=== PATIENT | female | born 1945 | race Caucasian/White ===

== ENCOUNTER 2021-05-07 11:34 | Emergency (ER) | payer OTHER ==
--- OUTSIDE RECORDS SUMMARY | 2021-05-07 11:44 | XMS REPORT | Continuity of Care Document ---
:1945 Author Organization [facility] t Address [address] [place] [address] Care Team Providers Name Role Phone Amos Crook MD Attending Clinician Rubi ORTEGA Attending Clinician Keith Machado MD Attending Clinician Amos CROOK Attending Clinician Unavailable Jose Grimaldo MD Attending Clinician Orion Payne MD Attending Clinician John Ureña MD Attending Clinician MONET GALEANA Attending Clinician Unavailable MARIELA Attending Clinician Unavailable Keith MACHADO Admitting Clinician Unavailable MONET GALEANA Admitting Clinician Unavailable MARIELA Admitting Clinician Unavailable Payers Payer Name Policy Type Policy Effective Date Expiration Date Sour ce Number MEDICAREMEDICARE A [id number] 2008 JULIO CESAR Rojo [id number] 2008-P 00:00:00 - Medical resentMedicare Center [facility] [id number] 2021 JULIO CESAR Saez SUPPLEMENT/INDIVIDUALA 00:00:00 - [facility] [id number] 2021-Present Problems Condition Condition Condition Status Onset Resolution Last Treating Co mments Source Name Details Category Date Date Treatment Clinician Date s/p RUL s/p RUL Disease Active JULIO CESAR St wedge wedge 04-25 Alia - resection, resection, 00:00: Me dical pericardia pericardia 00 Ce nter l window l window (Natrona (Natrona 04/25), 04/25), suspected suspected malignancy malignancy Allergies, Adverse Reactions, Alerts Allergy Allergy Status Severity Reaction(s) Onset Inactive Treating Comm ents Source Name Type Date Date Clinician Predniso Propensi Active [facility] - adverse 00:00: Medical reaction 00 Center s Sulfamet Propensi Active [facility] hoxazole ty to 04-25 [facility] - adverse 00:00: Medical reaction 00 Center s Tramadol Propensi Active Severe [facility] ty to 04-25 [facility] - adverse 00:00: Medical reaction 00 Center s Trimetho Propensi Active Severe [facility] prim ty to 04-25 [facility] - adverse 00:00: Medical reaction 00 [facility] Social History Social Habit Start Date Stop Date Quantity Comments Source Sex Assigned At [facility] Tobacco use and 2021-04-26 2021-04-26 Never used [facility] - exposure 00:00:00 00:00:00 [facility] Alcohol intake 2021-04-26 2021-04-26 Ex-drinker [facility] - 00:00:00 00:00:00 (finding) [facility] Smoking Status Start Date Stop Date Source Former smoker 2021-04-26 00:00:00 2021-04-26 00:00:00 [facility] Medications Ordered Filled Start Stop Current Ordering Indication Dosage Frequency Signature Comments Components Source Medication Medication Date Date Medication? Clinician (SIG) Name Name fenofibrate Yes 160mg QD Take [address] (TRIGLIDE,L 7-06 mg by [facility] - OFIBRA) 160 18:31: mouth Medic al MG tablet 51 daily. Center fluticasone Yes 1{puff} QD Inhale [address] [facility] propionate 7-06 puff by [facility] - (FLOVENT 18:31: mouth via Medi lilibeth HFA) 44 51 inhaler Center mcg/actuati daily. on inhaler glipiZIDE-m Yes 1{tbl} Take [address] etFORMIN 7-06 tablet by [facility] - (METAGLIP) 18:31: mouth 2 Medi lilibeth 5-500 mg 51 (two) Center per tablet times daily before meals. melatonin 3 Yes QD Take by [facility] mg Tab 7- mouth [facility] - tablet 18:31: nightly. Medical 51 Center multivitami Yes 1{tbl} QD Take [address] n - tablet by [facility] - (multivitam 18:31: mouth Medic al in) per 51 daily. Center tablet zinc Yes 50mg QD Take [address] gluconate 06 by mouth [facility] - 50 mg 18:31: daily. Medical tablet 51 [place] rosuvastati 2021- Yes 5mg QD Take [address] n (CRESTOR) 04-30- tablet (5 Irma kes - 5 MG tablet 00:00: 23:59 mg total) Medical 00 :00 by mouth Center daily. gabapentin 2021- Yes 100mg Q.[id number] Take [address] (NEURONTIN) 04-30- [id number] capsule [facility] - 100 MG 00:00: 23:59 3D (100 mg Medical capsule 00 :00 total) by Center mouth 3 (three) times daily. dilTIAZem 2021- Yes 180mg QD Take [address] (CARDIZEM 04-30- capsule [facility] - CD) 180 MG 00:00: 23:59 (180 mg Med ical 24 hr 00 :00 total) by Center capsule mouth daily. rosuvastati 2020- No 5mg QD Take [address] n (CRESTOR) 04-30- tablet (5 Irma kes - 5 MG tablet 00:00: 00:00 mg total) Medical 00 :00 by mouth Center daily. dilTIAZem 2020- No 180mg QD Take [address] (CARDIZEM - 07-05 mg by [facility] - CD) 180 MG 10:38: 00:00 mouth Medic al 24 hr 43 :00 daily. [place] capsule losartan 2020- No 100mg QD Take [address] (COZAAR) 7- 07-05 mg by [facility] - 100 MG 10:38: 00:00 mouth Medical tablet 43 :00 daily. [place] gabapentin 2020- No 100mg Q.[id number] Take [address] (NEURONTIN) 7- 07-06 [id number] capsule [facility] - 100 MG 00:00: 00:00 3D (100 mg Medical capsule 00 :00 total) by Center mouth 3 (three) times daily. 120 ACTUAT 120 ACTUAT Yes 44ug [facility] fluticasone fluticasone [facility]kes - propionate propionate Mem oria 0.044 0.044 l MG/ACTUAT MG/ACTUAT (LUF/ LI Metered Metered V/SA) Dose Dose Inhaler Inhaler diltiazem diltiazem Yes 180mg [facility] (LUF/LI V/SA) fenofibrate fenofibrate Yes 160mg 1xD [facility] 160 MG Oral 160 MG Oral L ukes - Tablet Tablet Memoria l (LUF/LI V/SA) glipizide 5 glipizide 5 Yes [address] MG / MG / [facility] - metformin metformin Memor ia hydrochlori hydrochlori l de 500 MG de 500 MG (LUF/ LI Oral Tablet Oral Tablet V /SA) losartan losartan Yes 100mg 1xD [facility] potassium potassium [facility] - 100 MG Oral 100 MG Oral M emoria Tablet Tablet l (LUF/LI V/SA) melatonin melatonin Yes 3mg [facility] (LUF/LI V/SA) Multivitami Multivitami Yes [address] ns Tablet ns Tablet [facility] - [facility] (LUF/LI V/SA) Zinc Zinc Yes 50mg [address]xD [facility] (LUF/LI V/SA) 120 ACTUAT 120 ACTUAT Yes 44ug orally [facility] fluticasone fluticasone once L ukes - propionate propionate (administe Memoria 0.044 0.044 r with l MG/ACTUAT MG/ACTUAT spacer) (L UF/LI Metered Metered V/SA) Dose Dose Inhaler Inhaler diltiazem diltiazem Yes 180mg orally [facility] every [facility] - morning Memoria l (LUF/LI V/SA) fenofibrate fenofibrate Yes 160mg 1xD orally [facility] 160 MG Oral 160 MG Oral daily [facility] - Tablet Tablet Memoria l (LUF/LI V/SA) glipizide 5 glipizide 5 Yes 1 2xD orally [address] MG / MG / times per [facility] - metformin metformin day Memor ia hydrochlori hydrochlori l de 500 MG de 500 MG (LUF/ LI Oral Tablet Oral Tablet V /SA) losartan losartan Yes 100mg 1xD orally [facility] potassium potassium daily Luke s - 100 MG Oral 100 MG Oral M emoria Tablet Tablet l (LUF/LI V/SA) melatonin melatonin Yes 3mg orally [facility] once daily [facility] - at bedtime Memoria as needed. l (LUF/LI V/SA) Multivitami Multivitami Yes [address] [facility] ns Tablet ns Tablet daily Luke s - Memoria l (LUF/LI V/SA) Zinc Zinc Yes 50mg 1xD orally [facility] daily [facility] - [facility] (LUF/LI V/SA) amoxicillin amoxicillin No [address] [facility] 875 MG / 875 MG / every 12 Aftab es - clavulanate clavulanate hours Memoria 125 MG Oral 125 MG Oral l Tablet Tablet (LUF/LI V/SA) metronidazo metronidazo No 500mg 3xD orally [address] le 500 MG le 500 MG times per [facility]ukes - Oral Tablet Oral Tablet day (14 Memoria days) l (LUF/LI V/SA) Vital Signs Vital Name Observation Time Observation Value Comments Source Systolic blood 2021-04-30 17:47:00 158 mm[Hg] [facility] Diastolic blood 2021-04-30 17:47:00 68 mm[Hg] [facility] Heart rate 2021-04-30 17:47:00 78 /min [facility] Respiratory rate 2021-04-30 17:47:00 20 /min [facility] Oxygen saturation in 2021-04-30 17:47:00 95 /min [facility] Arterial blood by Medical Ce gureita Pulse oximetry Body temperature 2021-04-30 15:00:00 36.67 Stefania [facility] Body weight 2021-04-30 05:00:00 109.2 kg [facility] BMI 2021-04-30 05:00:00 42.65 kg/m2 [facility] Body height 2021-04-25 03:30:00 160 cm [facility] Body Temperature 2021-04-25 00:00:00 97.5 [degF] [facility] (LUF/ERNESTO/SA) Pulse Rate 2021-04-25 00:00:00 86 /min [facility] (LUF/ERNESTO/SA) Respiratory Rate 2021-04-25 00:00:00 17 /min [facility] (LUF/ERNESTO/SA) O2% BldC Oximetry 2021-04-25 00:00:00 95 % [facility] (LUF/ERNESTO/SA) BP Systolic 2021-04-25 00:00:00 154 mm[Hg] [facility] (LUF/ERNESTO/SA) BP Diastolic 2021-04-25 00:00:00 70 mm[Hg] [facility] (LUF/ERNESTO/SA) Weight 2021-04-24 00:16:00 114 kg [facility] (LUF/ERNESTO/SA) Heart Rate 2021-04-21 09:18:00 90 /min [facility] (LUF/ERNESTO/SA) Height 2021-04-19 23:21:00 67 [in_i] [facility] (LUF/ERNESTO/SA) Body Temperature 2018-09-27 11:53:00 98.8 F [facility] (LUF/ERNESTO/SA) Pulse Rate 2018-09-27 11:53:00 88 /min [facility] (LUF/ERNESTO/SA) Respiratory Rate 2018-09-27 11:53:00 20 /min [facility] (LUF/ERNESTO/SA) O2% BldC Oximetry 2018-09-27 11:53:00 97 % [facility] (LUF/ERNESTO/SA) BP Systolic 2018-09-27 11:53:00 156 mm[Hg] [facility] (LUF/ERNESTO/SA) BP Diastolic 2018-09-27 11:53:00 70 mm[Hg] [facility] (LUF/ERNESTO/SA) Height 2018-09-27 11:53:00 63 in [facility] (LUF/ERNESTO/SA) Weight Measured 2018-09-27 11:53:00 244.71 lbs [facility] (LUF/ERNESTO/SA) BMI (Body Mass Index) 2018-09-27 11:53:00 43.3 [facility] (F/ERNESTO/SA) Procedures Procedure Date / Time Performed Performing Clinician [facility] e POCT-GLUCOSE METER 2021-04-30 17:06:00 Rubi [facility] POCT-GLUCOSE METER 2021-04-30 11:21:00 Rubi [facility] POCT-GLUCOSE METER 2021-04-30 07:38:00 Rubi [facility] BASIC METABOLIC PANEL 2021-04-30 02:46:00 Hortencia Vicente [facility] () [facility] MAGNESIUM 2021-04-30 02:46:00 Hortencia Vicente [facility] CBC W/PLT COUNT & AUTO 2021-04-30 02:46:00 Hortencia Vicente [facility] XR CHEST 1 VIEW 2021-04-30 01:39:00 Hortencia Vicente [facility]/BEDSIDE [facility] POCT-GLUCOSE METER 2021-04-29 22:18:00 Rubi [facility] POCT-GLUCOSE METER 2021-04-29 16:28:00 Rubi [facility] POCT-GLUCOSE METER 2021-04-29 11:31:00 Rubi [facility] POCT-GLUCOSE METER 2021-04-29 09:06:00 Rubi [facility] POCT-GLUCOSE METER 2021-04-29 06:04:00 Rubi [facility] BASIC METABOLIC PANEL 2021-04-29 04:42:00 Hortencia Vicente [facility] () [facility] MAGNESIUM 2021-04-29 04:42:00 Hortencia Vicente [facility] CBC W/PLT COUNT & AUTO 2021-04-29 04:42:00 Hortencia Vicente [facility] XR CHEST 1 VIEW 2021-04-29 00:55:00 Hortencia Vicente [facility]/BEDSIDE [facility] POCT-GLUCOSE METER 2021-04-28 22:29:00 Rubi [facility] POCT-GLUCOSE METER 2021-04-28 11:30:00 Rubi [facility] POCT-GLUCOSE METER 2021-04-28 07:02:00 Rubi [facility] XR CHEST 1 VIEW 2021-04-28 06:17:00 Hortencia Vicente [facility]/BEDSIDE [facility] BASIC METABOLIC PANEL 2021-04-28 05:00:00 Hortencia Vicente [place] [address]) [facility] MAGNESIUM 2021-04-28 05:00:00 Hortencia Vicente [facility] CBC W/PLT COUNT & AUTO 2021-04-28 05:00:00 Hortencia Vicente [facility] POCT-GLUCOSE METER 2021-04-27 21:40:00 Rubi [facility] POCT-GLUCOSE METER 2021-04-27 17:01:00 Rubi [facility] XR CHEST 1 VIEW 2021-04-27 14:00:00 Hortencia iVcente [facility] PORTABLE/BEDSIDE [facility] POCT-GLUCOSE METER 2021-04-27 11:31:00 Rubi [facility] POCT-GLUCOSE METER 2021-04-27 07:28:00 Rubi [facility] XR CHEST 1 VIEW 2021-04-27 04:50:00 Hortencia Vicente [facility] PORTABLE/BEDSIDE [facility] BLOOD GAS, ARTERIAL 2021-04-27 03:51:00 Hortencia Vicente [facility] BASIC METABOLIC PANEL 2021-04-27 03:27:00 Hortencia Vicente [facility] (7) [facility] MAGNESIUM 2021-04-27 03:27:00 Hortencia Vicente [facility] CBC W/PLT COUNT & AUTO 2021-04-27 03:27:00 Hortencia Vicente [facility] POCT-GLUCOSE METER 2021-04-26 22:34:00 Rubi [facility] POCT-GLUCOSE METER 2021-04-26 17:52:00 Rubi [facility] POCT-GLUCOSE METER 2021-04-26 12:46:00 Rubi [facility] XR CHEST 1 VIEW 2021-04-26 07:55:00 Hortencia Vicente [facility]/BEDSIDE [facility] HIGH SENSITIVITY 2021-04-26 04:20:[address] [facility] BLOOD GAS, ARTERIAL 2021-04-26 04:18:00 Hortencia Vicente [facility] HEPATIC FUNCTION PANEL 2021-04-26 04:16:00 Komal Machado [facility] PROTHROMBIN TIME/INR 2021-04-26 04:16:00 Komal Machado [facility] HEMOGLOBIN A1C 2021-04-26 04:16:00 Malik Rand [facility] TSH/FREE T4 IF INDICATED 2021-04-26 04:16:00 Malik Rand [facility] B-TYPE NATRIURETIC 2021-04-26 04:16:00 Malik Rand [facility] (BNP) [facility] BASIC METABOLIC PANEL 2021-04-26 04:16:00 Hortencia Vicente [facility] (7) [facility] MAGNESIUM 2021-04-26 04:16:00 Hortencia Viecnte [facility] CBC W/PLT COUNT & AUTO 2021-04-26 04:16:00 Hortencia Vicente [facility] XR CHEST 1 VIEW 2021-04-25 19:06:00 Mukul [facility]/BEDSIDE [facility] PREPARE RBC 2021-04-25 18:37:00 Komal Machado [facility] BLOOD GAS, ARTERIAL 2021-04-25 18:21:00 Mukul [facility] CBC (HEMOGRAM ONLY) 2021-04-25 18:21:00 Mukul [facility] BASIC METABOLIC PANEL 2021-04-25 18:21:00 [facility] PHOSPHORUS 2021-04-25 18:21:00 [facility] MAGNESIUM 2021-04-25 18:21:00 [facility] PT/APTT 2021-04-25 18:21:00 [facility] CALCIUM, IONIZED 2021-04-25 18:21:[address] [facility] AFB CULTURE + SMEAR 2021-04-25 16:43:11 Floyd Grimaldo [facility] (NON-SPUTUM) [facility] ANAEROBIC CULTURE 2021-04-25 16:43:11 Floyd Grimaldo [facility] FUNGUS CULTURE + SMEAR 2021-04-25 16:43:11 Floyd Grimaldo [facility] SURGICALLY OBTAINED 2021-04-25 16:43:11 Floyd Grimaldo [facility] - CULTURE + GRAM STAIN Medical [facility] CYTOLOGY REQUEST 2021-04-25 16:41:51 Floyd Grimaldo [facility] CYTOLOGY 2021-04-25 16:41:00 Floyd Grimaldo [facility] TISSUE EXAM 2021-04-25 16:30:18 Floyd Grimaldo [facility] ROBOTIC THORACOSCOPY 2021-04-25 14:42:00 Floyd Grimaldo [facility] - (VATS),CREATION OF Medical Cente r PERICARDIAL WINDOW CREATION,PERICARDIAL 2021-04-25 14:42:00 Floyd Grimaldo [facility] WINDOW [facility] ECG 12-LEAD 2021-04-25 13:10:25 Unknown, Hl7 Doctor [facility] POCT-GLUCOSE METER 2021-04-25 12:41:00 Neal Venegas [facility] ABORH, MANUAL 2021-04-25 11:43:00 Krystina Smith [facility] TYPE AND SCREEN, 2021-04-25 09:27:00 Karely Valencia [facility] - AUTOMATED [facility] CBC W/PLT COUNT & AUTO 2021-04-25 09:27:00 [facility] BASIC METABOLIC PANEL 2021-04-25 09:27:00 Karely Valencia [facility] - (7) [facility] PT/APTT 2021-04-25 09:27:00 Erik [facility] LIPID PANEL 2021-04-25 09:27:00 Erik [facility] HEMOGLOBIN A1C 2021-04-25 09:27:00 [facility] POCT-GLUCOSE METER 2021-04-25 07:30:00 Neal Venegas [facility] REPORT OF PROCEDURE - 2021-04-25 00:00:00 ProviderGerry [facility] ENDOSCOPY SCAN Scanning [facility] Plan of Care Planned Activity Planned Date Details Comments Source Future Scheduled 2021-06-26 INFLUENZA VACCINE (#1) [facility] 00:00:00 [code = INFLUENZA Medical Ce nter VACCINE (#1)] Future Scheduled 2020-10-[address] [facility] - Test 00:00:00 (12+) [code = Medical Center DEPRESSION SCREENING (12+)] Future Scheduled 2009-11-[address] [facility] - Test 00:00:00 WELLNESS (YEAR 2 or Medical Center FIRST YEAR if no IPPE) [code = MEDICARE ANNUAL WELLNESS (YEAR 2 or FIRST YEAR if no IPPE)] Future Scheduled 2008 PNEUMOCOCCAL 65+ YRS [facility] - Test 00:00:00 (1 of 1 - Medical Center [id number] PCV13) [code = PNEUMOCOCCAL 65+ YRS (1 of 1 - [id number] PCV13)] Future Scheduled 1993 SHINGLES VACCINES ([address] [facility] - Test 00:00:00 of 2) [code = SHINGLES Medic al Center VACCINES (1 of 2)] Future Scheduled 1962 DTAP/TDAP/TD VACCINES [facility] Test 00:00:00 (1 - Tdap) [code = Medical C enter DTAP/TDAP/TD VACCINES (1 - Tdap)] Future Scheduled 1961 HEPATITIS C SCREENING [facility] Test 00:00:00 [code = HEPATITIS C Medical Center SCREENING] Future Scheduled 1955 COVID-19 VACCINE (1) [facility] - Test 00:00:00 [code = COVID-[address] VACCINE (1)] Encounters Start End Encounter Admission Attending Care Care Encounter Source Date/Time Date/Time Type Type Clinicians Facility Department ID 2021-04-25 2021-04-25 Outpatient [facility] [id number] [facility] 03:31:00 23:59:00 [facility] 2021-04-19 2021-04-25 PERICARDIA 1 KERVIN [facility] [id number] 20:42:00 01:09:00 Cb HAMMONDS LUBBOCK [facility] [address], V/SA) [place] [address] 2021-04-19 2021-04-19 Inpatient [facility] [id number] 00:00:00 00:00:00 LUBBOCK [id number] [facility], [id number] Memor ia [id number] (LUF/LI [address], V/SA) [place] [address] 2021-04-19 2021-04-19 Inpatient [facility] [id number] [facility] St 00:00:00 00:00:00 LUBBOCK [id number] [facility], [id number] Memor ia [address] [id number] l [address]UD[address] (LUF/LI AVE, V/SA) [place] [address] 2018-09-27 2018-09-27 Inpatient E ZHANNA [place] [address] [id number] [facility] [address] 11:27:00 13:35:00 [facility], Memoria [address] (LUF/LI A[address], V/SA) [place] [address] 2018-03-30 2018-03-30 BOOGIE BARAJAS, [facility] [place] [place] [address] [id number] [facility] 10:53:00 23:59:00 CHINIK CA DALIA [facility] - W/O ANGINA [place], Memor ia [facility] [address] (LUF/LI A[address], V/SA) [place] [address] Results Test Description Test Time Test Comments Results Result Comments Source Tissue Exam 2021-05-02 11:04:00 Test Item Value Reference Range Interpretation Comme nts Case Report (test code = 104) Surgical Pathology Report Case: [id number] Authorizing Provider: Floyd Grimaldo MD Collected: 04/25/2021 04:30 PM Ordering Location: [facility] Received: 04/25/2021 04:46 PM PERIOPERATIVE SERVICES Pathologist: Sweta Blanton MD Specimens: A) - Lung, Right Upper Lobe, RIGHT UPPER LOBE WEDGE WITH MARGINS AND NODULES B) - Pericardium C) - Lymph Node, Pulmonary Ligament, Station 9, STATION 9 D) - Lymph Node, Para-Esophageal, Right, Station 8R, STATION 8 E) - Lymph Node, Subcarinal, Right, Station 7R, STATION 7 LYMPH NODES F) - Lymph Node, Lower Paratracheal, Right, Station 4R, STATION 4 ADDENDUM (test code = 3381) l3vhvLKqSKKhpCJ7YqLcLLBiq4eko2NkkLInaZF y ELbysLRcctRlat20wLI3lY24SL4yFKUuKbB4SPRm nfE4Yot9MLBhDKNkpATbZ695a8niu6nefuBopZP1 fVxwYXJkXHBsYWluXGZzMjAgVGhlIGFkZGVuZHVt XXogPRFyrF1gXDfsm3YxLXB2qfZdHAHvxbPasWvo CHBqk9CugTPia2FcVkEzl6cdCIQdjH9jvC0cfXzs eI7rqXCcyXSwlAOewEMvtiAxntBtyA3arrYWOy3r WWavTELudjXyOBJqCDjby0WvleOgtoD2cbJdHT1w FQJmLAQzEMLemSHpzuJxxePcu69znTK3FJ82NFya cIbgEKLteTijl81aqjzolFZjoXQurI8sBAKtdpym DYTnKcYug6wkUPCpLUTyg5b8lLJeGakcDRAnmQJw RLYIwMHwL83agGPygMZqrTcqJXQjasHdIAQdpTP3 OD0hEYLfahSJjGBwzI5yzM5yeAimrD4igXBlcRA2 mtqqeVAwwUA1MGZiUEL0LFmaiERsMMTdMITfzNLw oMFpKm0fvSXvW6UkQ4ysmoUpdAQkjVH6iNBcNCBn gXMgePrpTYFfDxpgJ0xEJKX0KeEGfWkbN4YzLRTs uKGgIAG2d6MgnCndKLZ3mK3yh8a4BJqvUt8pBTKe ucsaRMw8FNbckyBao5MyBbQjctIflIAvixAzZQ4f DKGxyUPzhxXfFZV4ZBBgRKNIJnQaXMOyf8ZjMK6q VEJfrOdaUVUalZ8gt6OuBAFrz21nYITrVUHASHZr aGFzIGRldGVybWluZWQgdGhhdCBzdWNoIGNsZWFy EA5uYTSbliXjiRAfq9VkrIJipaBxw9QwjzKpPNMi JKW3WyYAvQMeiGYncIBxifT2c3EqBXDwpvRczSqe vZFanTSgdRNop1Madz7sKTLvn4eecLglEH9wnKYn NOFxUWyyupApAZSorzFkinTpq8HjA8I7xG0xBEji t7WjNg2hQSDwu6MggdJdFjIRcMhdABolWx3zVLKs bbntgUOpE3GgaMftcJMfNMCdUFWrJIAeHNDUhIjt dRPecIIUZFLmduC0o6V3MWvrzEXkpwOvIQ36SGBr UR8nxOWosBTnq6GdPHf8WRAsS7oUHW32KPtaIEYs qBKyxWsfdMYwJQLjAGGjkzCkjf5ujQihcAUwr68c eBY6yNN4OCExeB6cW9XwTNtxPy2wWLYatfhisWYk jKkyTy5bbRMrKKGmjdWgVXQenTVyg70zmUHEXKPc U36dIZZ5VUb9AhSvKGHblYFtLSWhgwIVz9NqUhKY iCOcOoxbS2oliRFpJCThTR2vs2NajWWwi8WaXSzH IlNdxJ8bUMW1uFCgCANlm8NrCZmmfKcovnWctSB7 IHRvIEFMSyAmIFJPUzEgaWYgbmVnYXRpdmUpIHRv WE7pq9ynvt5glOQjVGulJz2sSIBflzvqfwIppcA3 LzgvMjEuXHBhcn0= DIAGNOSIS (test code = 3220) n1bmzXJhVHRqk2dsVTSflSDfOnLiMlFmOwBsDq pc dWMxIHtccnRmMVxlcGljOTIwMlxhbnNpXHNwbHRw R3SydxtjLLlqUR7gDY2vtVqusSOfvFMtFAPkFxZf h9fdn098bRSuj4npKJPSkkubhWg5sStdX28ef6L9 PmwnC1alVQTaGWNvC1JmZZ7hMKLtBgi6QRY1EUq6 PJKxvtMctSpbtV5xMfHwVDLYCyJIFX3GVUESLKdS AQDOSWPYZgYDP8NBXCQLRHMISWHIVCHDL7SJV71x wYRpSC0oUVSVGnTHJ7rUICSXZXLSK7LLTlSWQx3S JOwaWE6MPxgAJVRCCjLTNgCKSUkCQCDDVXScyxLn WBNrKPmKQP0MV2xVNlHKQMWQIxKxM96QFMMzOYML JI8XOW0YZjKvaWQiGL1yYJPXEYqIOM7LV3KRWJSO QK8DGD7pPcWQZ1IJXLInLD5WXSYNR78vZRHFW9WS JDlwDV1XCEWWFT2ECOYIYFTQKgLHD2kJYFEVIK9D BciKTpheQNPkAPDhLLBZE0AILRYPT8QYJQWQT60o WC6KZEhSPnODRU5LDX5WOAMKR5ZEVxACCVAAUCKJ MSotAKQhL2vsQqBkxNKsKYVjLKXEDPoOSU8CUFBe N6TFY2OzQ3xEE9ZJIdiDLOQLU97aLARUCz6oYTKH D3SrCZElCKPwiSAdp21oOIHYUjRQYh0CMGOncjRa ABJrZ8UBCDSSAf1UIHoTAUULEQ6SATwlAVRqV1fu TuYlmHRogCQjIATbGXGTDxoWVGMTEDASMSKZVQ4F K1n1HTHcrqIqCWHwRg5xPDTRFIvDEU9HRKKKEMKV UHKnwepzSFWfXr0rIGjEPJzrFg3BCIwpQDFRCX4E WBRLYPlUY5ZPWM3IYDXMHWDVUF8BUTelCSTBXSIE Z1oPEubjqJXbKE5tZPUOCISUS8IKO5VDQCKXRVGB W2WZDVXACOOWZ2QALZ9ZABdEBzFNRSZNKPwWK6gt WWTxFGNiGT1LXFhWXAKTD4qQTIEQO0UGKWLYPHBD QPlLVFFPMV6QAP3SMWKHTWyRWAqEKtABW3hcRDXp tDAiUTLcONuLSXFCGO1TRFBySESIU9sRBBAMHjYe JATFIRoJT0FFTUatY8KOEXxGGiY7DgjcSOoZFXEC R890SBGpgsUjROQpT69UBZbMXHNZIF0WPDQdM6jC OQ9QAYAGNQDZA1IJKRjDIBWCTpUBKr3KULLIMiPT ZtFQXHqPYFZpJORcJPbecJZsYYPqskUAWjRPNW4Q ACVBR2CIMIAFMIhOPMGOGXSANTISIrMRACQAUBOJ YY2JMBgIGPQDYCJUB6pVHauvvIKpTW7sYKTLSNHX QUTABCVHQvLOZOBHOMESJNvLOQLQNL0YKOXiJBQF W0aNYSVVAEOQBbPEAAPJM8FUJIpKIGCDZdPEAf3C ONRxQL7eNTuuQTKriEQtMPBsZReLNDFRFG6FMTQb ICPOX9fAMVgQA7KSCLBRQmOMJjCQZMZITEehF5CQ XYfGIhG2OtpcVRzXRXIMB044SGQwdlDgDGRhEvTD J82BBdAQFMKFIdNtOeOUOa0LUMOpTTqWYGblZs7L RYzpXH6EDIIZGjItZt7ENB9XEMWEYMKBDUNcQ9TY T3wGN09VROwaUnPrBATnkj52AGB1KkUhd3E0HRD9 ZBYhKNYay7zfYGPtmFWuTcYqGwRrCbHwJhsupZUb HTAcNfWkj4pap245rJRyn6foHTQtHdA1cPAhKAXk aOYyK925VBTaCTehn6sog6TmHRWxlHLdx5D1JVJF mvmkyOh5aIomC29qa5F8RnkuU9buHUFuZFIgO7Nb WA3lQUDsQbt6NHU1ETQ7TLWhBQYdW3TnKD6uRAOh zLLsWHk5c5wccDtzBOCsPRE4v0ivHHmtjjTlFJ6u uk6czOm9m1cancGaUSChUPMxlTPHKWIxG4UmwCqw Sa8btWp7xRpmGbcqSVN3Kvu3GP6qof27fpv6gTmi XSSylkkpSdR7PJgeCKNvwnddRNo1ELeyXMJwdXM9 DBKbmBYoP0ZsFQFtTN2dlag1ZDJ4NGntGQBlWsP8 HLFmnBBvIWCnmJedXDbuk916PIG5QnFfRU4vK2Kp p5B4uJ4tlSHfWSCbxAJtKoSpGIGirg3taUXuRAie p0XaMRA9jgG2xJHmgZBbDSYeEuR2KWajCH6fmh17 KIMqKGG3wi8diOLemEwnivCmrVYsIPbkJ8AlWCWd s815UHYtG3PlOORqd5S9ykHeAcIaOTAdmVM9abY3 XDCxVC0dijicb9bpMJckBFdcZKPwdxU7myN9FVXu oNXuE1PzvE5rSSLmUX8ivdpst5wnKZC4NKtxUBTz AJP0GsQoIZEwk2Hzths8ThCor0WswRIoFFjmF78b j823IPXmymLdJ6xfzSHpbsufwVIravgyBPmfdlL1 CHKlUUyjmoggDQTjBDjlH9veKwUsQHZyyDypTWov t9CdDUQbZMEwBhXoqQWuDCRcRri2SBUeoYHhRYRd EpOxJ5gtesfkWnSXUQVzs5cqI4hruJWXsTGkY4Pl ZSchocSlPUlkTOihSADfKYT0JF89QSniWKPvpl88 COMMENT (test code = 3359) u1pzbPRcCHSjuWE5TgDzXVRlm7gif0RfkUKslBRn HGwohCQugfXtgr29pJV2vV79HJ0tKCCbPnN9BOPe yaN2Ocw7YBRiAZEvkAMbX162f2peb9gyrnDfnMW3 jIsbNOHtDVXgBQwoQZAfPdEvEJkyJtorTxFuO14n miZdYNHrbU7loUKco9NhDCVwm3R6ZTC3jESjGT0x gEMokKK9bVWvoQGpt0HghVPfwLVzk8HxwBehWX7b GCrmyqVxRKGcKAGlqX36VMPrKELtk27pCQ9cMAQd L5bgtxhsCSgcU22pwnGnWOGlv07koJUrpwArw36e MS4pJJOnRq6fBW9dJIIxT767zzXuKNNdfu7= SYNOPTIC REPORT (test code = 71) LUNG (LUNG: RESECTION - All Speci mens) 8th Edition - Protocol posted: 12/21/2019 SPECIMEN Procedure: Wedge resection Specimen Laterality: Right TUMOR Tumor Site: Upper lobe of lung Histologic Type: Invasive adenocarcinoma, solid predominant Other Subtypes Present: acinar 10% Histologic Grade: G3: Poorly differentiated Spread Through Air Spaces (BEVERLY): Not identified Tumor Size: Total Tumor Size (size of entire tumor): Greatest Dimension (Centimeters): 1.4 cm Additional Dimension (Centimeters): 1.1 cm Additional Dimension (Centimeters): 0.9 cm Tumor Focality: Single focus Visceral Pleura Invasion: Present Direct Invasion of Adjacent Structures: No adjacent structures present Treatment Effect: No known presurgical therapy Lymphovascular Invasion: Present : Venous MARGINS Margins: All margins are uninvolved by tumor Margins Examined: Parenchymal Distance of Invasive Carcinoma from Closest Margin (Centimeters): 2.0 cm Closest Margin: Parenchymal LYMPH NODES Number of Lymph Nodes Involved: At least: 2 Sherley Stations Involved: 4R: Lower paratracheal Sherley Stations Involved: 7: Subcarinal Number of Lymph Nodes Examined: At least: 3 Sherley Stations Examined: 4R: Lower paratracheal Sherley Stations Examined: 8R: Para-esophageal (below negar) Sherley Stations Examined: 7: Subcarinal PATHOLOGIC STAGE CLASSIFICATION (pTNM, AJCC 8th Edition) Primary Tumor (pT): pT2a Regional Lymph Nodes (pN): pN2 ADDITIONAL FINDINGS Additional Findings: None identified CPT Code(s) (test code = 3357) h7brqUBjUYXkzYS2OhKjOMFoy3wwg5DqxUPj cGFy CEevyXCctjZmif38gUD0pD21KU0yZQBdYzP9PMFn qdN1Uii9GYRkJKJuvMYsQ139e8qwv4bxliRpnQA2 fVxwYXJkXHBsYWluXGZzMjAgODgzMzEgeDEsIDg4 SqEdEJrdIhyvXInwNMnvJYo9NuDsALA3WXM0LYD3 MAAhYQw8WeT6AWulOVnyCFO1 CLINICAL HISTORY (test code = 3356) x4aqsZZvQMDqtUG3FdEhAUVwm1dxq0D sdHBncGFy DZlsjZOkejVpsy43zJP7jZ87XP0nHNPrFcH4OCXi ohP7Xrv0RBQiNSQcdVNeW889b1vrt0qrtbTotBH0 mZfaHVZnYDCyLQjpNXHmJaKvGJNuZyAcz1N6zPZe NNWfk8L7gpLoeaIgMyGmgaEakAqjQLQkTLIoEPef KSLozQRml16uwPNyiN== SPECIMEN SOURCE (test code = 3377) a5hbhRLnIHMiuSZ5JuIjDRZkt7goo3Fv dHBncGFy FWcciALrflEztk85iDJ2gK81MD1qMADwHdR8SEQo yrC5Smm0RDGoVUCrrIKkB033i0ina2climAbqZN0 dQkiQNBrZMGbGCtcLCGbHlYdOI7oHKy9cbdkFVBl W8s1TGIzgAJzZHfyYoEmpQIeQBXqCZQwobfsNMHq bPKtZYJdwqEPKtNNcQ5wzGVmd8MdHCUwxRM9eA0e NSwlpAJblQ6qWNG1FLncY7BgEG74EARcnlJMAjJT xC2mdJMkx6YbUBWwNTTcRSUpz0CuHFlnGPxebgdf dIXrp2HrrJsrukH1CtgdWASbRY1mXKyfbOhkpm2j AEzng4HbO8KyhG5qoIUhtIviqHJocPV3sA4rOIgE TWUtwuAIFeWUuW9ieHOuh2GlSWXax2dcupPbCQGt sBHsM9xoMMamjdfpuDVbz8OymVbymkG1ZrwySYB0 GROSS DESCRIPTION (test code = 3366) j5nceDNmUKTtyWIpReDmXNMcERAcf7 lcZGVmbGFu XwOxQoCqFeJeDtgwzADpZMNqZzRki9dbl065oDOj f5ngCNZZgiiuxWy1a7qjOXFrJlY5iPOeIItjT9fp ifFxbRItTRNgIXr0jA38EHSqnF9eyVKgUSeaysWy TvO2HUmuEEMqGuP5WNXibYFlADIhC8mnUGIzTDin SONpNMqdmUXiWIF4xZunq1Y6pLAazAHgnFtyOrVw FdZnZVZCn7DuARg5yMkxF6HaJGRmDnZ6qBYgVWSf QPeaWTDsCUNvoaE4dD48JGumnzU5bIZcw2Ird24j u578pE5rnWGgWXX1WJBrPLQzdYRzBGRiCDA7METw nPExS8o5TsXqmXKcY7L4LvXwcGVwO7M2QpWkmYFm C7W8MvLbcKFvTYMgmNYbWv3myMSzzQTkgo8oij41 WSK1c8WguTokGKZ1UVM9OtExNn3xiJZbVXRsGGRl wVVpLXOsGT5teXOpNGUdgV5pdesyDGEaOoVhvjdc BRGqdDtbhnQpEc4yzXqgTNO0VUifL7gsmI8eDfK8 EXtoD5sfvU9hDHx6TFvesZI2PUVocT1xPK7dmpoo p6whGyZbJQ5etaegz8hhTfEpKP6flhn9s5qpQbDm MP4szsrhq3lyCqCiGEvxVYTzzcitCSGzd3Pslqki VGJxi0VyQ9NnmPjiM03smDefB81gEJIdzKdrtU3d jIekyB8dBjHdTpQlDGlrNWRyBWMlPCzdMUVdSJKn MjBcbGFuZzEwMzNcaGljaFxmMVxkYmNoXGYxXGxv [file] XHBhciBkbWdccGFyXHBhciBCLiBSZWNlaXZlZCBm cmVzaCBsYWJlbGVkIHdpdGggdGhlIHBhdGllbnRc E7X7ygJnYK0bKKYvXLDkY7TkYJKjM55lZVQvtE0l ZANqNB1xHZVwXVTjL2LwHTe2vMGibWRvEBAjXaha dHZkLCntYJ7uDCHlJAtickEgcWeoyjIfx1Z5eV0v ER0qEBnthHaaoh14zZn3VDNhrHGxr37iuBEvAB2i dIGegLfho5DrPfLlZTexIVStBMSwcGKbDWjgCGDv svtyuDx0YJWmW1Qzy29gQHBfcpBfQG76hGVsxZyv j6FbvLs7sIWsZQbjGFRmRfQpC1sntDLgBYNdawKY LiBSZWNlaXZlZCBmcmVzaCBsYWJlbGVkIHdpdGgg iCjsJPMnlFmtoqBdW4L0flOzZV3uYJAzCJBbU6Pm WVSpN17xZBCmyJ9tIZSbGL6uIJXbjIE5lI8tCKju KTjvVRPtRJ17DOKyLDOtlDSrd2WfkLlbk0YhULVv ATgiBI97ICU9Yf5uhBPdNGWwjhR5l9FaYOeqGJRw XhAsB8yyrPDeNUSzdgSJRqKSVARxoFWeDVSrciTc vBWpXKGajIVuFQtpyMeshRmfZWItbOcovmXxA4G6 czGkDO7zYRLqUJGoQ0XnJGAcS97rGYTbqP1fEFTj QW1nHYGfaLI6jX6qTZdrGAokNMLpTD39DTKwGYQd gYzmSCWxcNxyRFr2bWJkET2wVUSsl9BlaSy1wDRo BSxeNABtgH0nbK9eFQHaDFKMI6jsKNSopLUuYQRj MMJeV1TuprNqULSvCZVoSXbtUhExCBDxh3y7iHI0 mGHleDA3cNNcsMmcZsAbTD1ydGWeMT6wAXbmVVnm mmPnn7PgGH98dRHejoZsjaIcJvK9JISuo44rBmRm bSIeKTHqBrCuiLVoCExvPK6qXUMiURAvR0KeT7O7 ANQuZbSglMh4rRSjXXVsmJ6rYAFsODZ4neN1BC6i n55fcMH0pODyyFQvEhGdX93kuuApe1KnqWk7aICr GNzsXKUcvT9jjG5bIKHzPDAGQ4khSYYxpGPaFKTt TBIsO1IkxaKpWSYlASMdTGanZqToTBQev1d2bQU8 sRXzxJJ0zLIprVcwPhVfNV6lxUPpGH6yHYspRJyo jgIdt5GxFQ67pCAzdhPtmnDnEgS0JZPmw99rGPEw kYKhLBGgQwKznWKeBoMjkJEaRoLxD96yNGpnaqSa UGMbSU3jRN97fKYixRuyWCVmi3toHLhyaWOlWPXz FNKgdukdm73vsCB3rSBwsDImGgYpS12dzzVyh2Dr vRl2aMMjSEjhCYIkdK8klV6nQtGaZBXFZ8mwEPX0 INTRAOPERATIVE CONSULTATION (test code v4pmoUGyXRWdwMXfReLwK IAhLJQgu6ukQEFxvNEo = 3368) UcHmCrLrNiElWuyxmFJuISDxFzNns8zbk482fDCz m6nwXNNBbmfodUt7k6wjZHPuDxR8hBNjKPdgC0sv gdTmpNAwQJVnHWx4uT55CUAipP3eaILxXNzqtmUu IiR7IArkEBRwYwP6JGGauJBsCITyC3teXCMoAOte LVElLGaouUGaQOS4iGehi7I0dCQjdZLluBvyKtIb UlBoSAPAg4BbBKd3pQdpE3WtUFUxLhU0kDPhSUYx WBefYHTcXHWexxA8xX01CZolfgS2qZOrj8Zqw17s m363mQ1lpRUdDOB9TQLuJIOojJHhRGMtACN7STUd pGOaM6r1ZjHqzVRvO3Q5ZcUmuRYcY4O7OeHlcKJb N8G6VqNzfICkEGWyrCCiUu9uyWYnqZKici0ual78 ENE8s7CivFwhNIS6KAL0GfVjYp5pgELhNWFnYQAb mLTgDELbCN8obHBcYKNpaO3adlfpDTAeStWrfoxt UCMxbCaudiWvAi1kqCcpRWC5FTgtQ7ftfI3mZxL1 MSyxF0ahsD0tIXh2ATyrlWU8ZSIyuR0pGA1fgmxm e0gaXpJrGO3xmukjm7xfFrUvXP3jweo3e8yuGtCt QX2iscmpi7hrPuYfPJfzGLOafwjgGTPiz5Ziutcz ARKxq4IcL4SovKxfR52xtFmhG36kKIIwqYirsO5l oNvdzJ7uQfSiLlBmIYqjHKTgIWFhFMklHLKgGIIz MjBcbGFuZzEwMzNcaGljaFxmMVxkYmNoXGYxXGxv F1anScPyViKbDCAMYPKjRItkTxEHZTTbLoXZUPLb FWETgO3bMKRmvRzthDN4lXCjidKfb2PdKUU3COFe FNZwNQSuM6Pxl961AGwsdpVkTO4lUCWmTXCii76i y90xeDubE6GjeIPiQTEomK3wlDGqXYgxz8UswGol WiXedRJwbf6bBPRhNZHjcS9sREJ2ESEthwMjK9l7 xBTdJZ9umckgov7nGZT7pC8uLHBlGW6njR3zyAbq lAljsRepF7Zab4X9zRDwKAWnKSFmlaWadfUhoX0o QWk2JR0rrJSqFrMxGNLzpxRjmG1ueLJkCGVigP7d VIIMRTWtSHzrmM2mCZ0WYOA4fLNfGZKszqIqfXu3 TYBiiWwwIBS4wcZYCrFUXdZ5AEY2EON0InBxUB0b Vu5iRbCnKnHjnVYbyI== MICROSCOPIC DESCRIPTION (test code = i6uwjJGcEPHnnDL0RnKhTTMug6uhe0 BsdHBncGFy 3371) HLvrnZPmdeYomh02bAZ4bD10PB0kQEBsNyK3GPIw hdQ5Ala4LHOcEEAcoPYvU579r3szd8lhxtGijOV5 pVeiINOcSQNeWMjaJUOaNzDhNTJeMz6soJLdIkAx cGFyfQ== SPECIAL STUDIES (test code = 3376) g7tjyAMuPHMteQK0KhWsTLIdr6mqf9Mj dHBncGFy [file] JUkskFVmx5EgjB0zfMX9UGR1cK5nOjpwHJN9 Gross assessment was performed at (test [facility] enter, code = 2777) Department of Pathology, [address] [place] [address], Technical component was performed at [facility] er, (test code = 2778) Department of Pathology, [address] [place] [address], Professional component was performed at [facility] C enter, (test code = 2779) Department of Pathology, [address] [place] [address], [place] [address], [facility] ValleyTISSUE [id number] 11:04:00Surgical Pathology Report Case: [id number] Authorizing Provider: Floyd Grimaldo MD Collected: 04/25/2021 04:30 PM Ordering Location: [facility] Received: 04/25/2021 04:46 PM PERIOPERATIVE SERVICES Pathologist: Sweta Blanton MD Specimens: A) - Lung, Right Upper Lobe, RIGHT UPPER LOBE WEDGE WITH MARGINS AND NODULES B) -Pericardium C) - Lymph Node, Pulmonary Ligament, Station 9, STATION 9 D) - LymphNode, Para- Esophageal, Right, Station 8R, STATION 8 E) - Lymph Node, Subcarinal, Right, Station 7R, STATION 7 LYMPH NODES F) - Lymph Node,Lower Paratracheal, Right, Station 4R, STATION 4 The addendum is being issued to report the results of Napsin A immunohistochemical stain on block A7. The final diagnosis is unchanged. The stain is consistent with a pulmonary primary. Napsin A- positive. The control slide is adequate. The immunohistochemistry test was developed and its performance characteristics determined by [facility], Pathology Laboratory. It has not been cleared or approved by the U.S. Food and Drug Administration. The FDA has determined that such clearance or approval is not necessary. Thetest is used for clinical purposes. It should not be regarded as investigational or for research. This laboratory is certified under the Clinical Laboratory Improvement Amendments of 1988 (CLIA-88) as qualified to perform high complexity clinical laboratory testing. Additional CPT codes: 29804 Note: The block has been sent for EGFR molecular test (with reflex to ALK & ROS1 if negative) to [facility] on 05/02/21.Addendum electronically signed by Sweta Blanton MD on 05/02/2021 at 11:04 AMA. LUNG, RIGHT UPPER LOBE, WEDGE RESECTION- INVASIVE ADENOCARCINOMA, POORLY DIFFERENTIATED- HISTOLOGIC TYPE: SOLID PREDOMINANT- MULTI-FOCAL LYMPHO- VASCULAR INVASION PRESENT, INCLUDING AT PARENCHYMAL MARGIN- FOCAL DISRUPTION AND INVASION OF VISCERAL PLEURA- PATHOLOGIC STAGE CLASSIFICATION (pTNM, AJCC 8th Edition) hL7dD7UH- SEE SYNOPTIC REPORTB. PERICARDIUM, BIOPSY:- NO MALIGNANCY SEENC. LYMPH NODE, PULMONARY LIGAMENT, STATION 9 , EXCISION:- FIBROVASCULAR TISSUE WITHOUT MALIGNANT CELLS- NO LYMPHOID TISSUE IDENTIFIED ON MULTIPLE LEVELSD. LYMPH NODE, RIGHT PARA-ESOPHAGEAL, STATION 8R, EXCISION:- ONE LYMPH NODE WITHOUT METASTATIC CARCINOMA OR GRANULOMA (0/1)E. LYMPH NODE, RIGHTSUBCARINAL, STATION 7R, EXCISION:- MARKEDLY FRAGMENTED LYMPH NODE, POSITIVE FOR METASTATIC CARCINOMA (1/1)F. LYMPH NODE, RIGHT LOWER PARATRACHEAL, STATION 4R, EXCISION:- FRAGMENTED AND NECROTIC LYMPH NODE, POSITIVE FOR METASTATIC CARCINOMA (1/1) Signing Pathologist Direct Phone Line: [phone] E, F: Fragmented lymph node tissue with metastatic tumor is present, and has been counted as one node.Clinical correlation is recommended for node count.LUNG (LUNG: RESECTION - All Specimens)8th Edition - Protocol posted: 12/21/2019 PECIMEN Procedure: Wedge resection Specimen Laterality: Right TUMOR Tumor Site: Upper lobe of lung Histologic Type: Invasive adenocarcinoma, solid predominant Other Subtypes Present: acinar 10% Histologic Grade: G3: Poorly differentiated Spread Through Air Spaces (BEVERLY): Not identified Tumor Size: Total Tumor Size (size of entire tumor): Greatest Dimension (Centimeters): 1.4 cm Additional Dimension (Centimeters): 1.1 cm Additional Dimension (Centimeters): 0.9 cm Tumor Focality: Single focus Visceral Pleura Invasion: Present Direct Invasion of Adjacent Structures: No adjacent structures present Treatment Effect: No known presurgical therapy Lymphovascular Invasion: Present : Venous MARGINS Margins: All margins are uninvolved by tumor Margins Examined: Parenchymal Distance of Invasive Carcinoma from Closest Margin (Centimeters): 2.0 cm Closest Margin: Parench ymal LYMPH NODES Number of Lymph Nodes Involved: At least: 2 Sherley Stations Involved: 4R: Lower paratracheal Sherley Stations Involved: 7: Subcarinal Number of Lymph Nodes Examined: At least: 3 Sherley Stations Examined: 4R: Lower paratracheal Sherley Stations Examined: 8R: Para- esophageal (below negar) Sherley Stations Examined: 7: Subcarinal PATHOLOGIC STAGE CLASSIFICATION (pTNM, AJCC 8th Edition) Primary Tumor (pT): pT2a Regional Lymph Nodes (pN): pN2 ADDITIONAL FINDINGS Additional Findings: None identified 41119 x1, 16031 x 3, 68396, 74736, 20317 x 3, 02293 x 5Lung nodule, shortness of breath, pleural effusionA. Lung, right upper lobe B. PericardiumC. Lymph node, station 9 pulmonary ligamentD. Lymph node, para- esophageal right station 8RE. Lymph node, subcarinal right station 7RF. Lymph node, lower paratracheal,right station 4RA. Received fresh, for intraoperative consultation, labeled the patient's name, accession number and "lung RUL", consists of a 12.10 g, 6.1 x 3.6 x 0.8 cm lung wedge specimen. The outer surface is kidd-purple, and focally hyperemic. Specimen is inked and serially sectioned to reveal a kidd-yellow, well-circumscribed, solid mass (1.1 x 0.9 x 1.3 cm), 2 cm from the closest parenchymal margin, and abutting the inked pleural margin.The remaining lung parenchyma is maroon-brown and spongy.Ink code:Blue: PleuraSection code:FSA 1 territory representative section of massFS A2-FSA 4 stapled parenchymal margin submitted sequentially (FSA 2 is closest margin)A5-a 7 sections of mass submitted sequentiallyA 8-12 entire uninvolved lung submitted sequentiallyA 13 section of mass for ancillary studiesdmgB. Received fresh labeled with the patient's name, medical record number and "pericardium" is a 2.8 x 2 x 0.1 cm irregular portion of yellow-white fibromembranous tissue. The specimen is serially sectioned and entirely submitted in B1. CGC. Received fresh labeled with the patient's name, medical record number and "station 9" is a 0.4 cm adipose tissue fragment submitted in toto in C1. CGD. Received fresh labeled with thepatient's name, medical record number and "station 8" is a 0.5 cm anthracotic lymph node submitted in toto in D1. CGE. Received fresh labeled with the patient's name, medical record number and "station 7" is a 2.5 x 2 x 0.3 cm aggregate of multiple pink-red to kidd soft tissue fragment submitted in toto in E1. CGF. Received fresh labeled with the patient's name, medical record number and "station 4"is a 1.5 x 1.2 x 0.2 cm aggregate of multiple brown-white to pink soft tissue fragment submitted in toto in F1. CGTPA 1, FSA 1-FSA 4. Lung, right upper lobe, wedge resection:-Nodule non-small cell carcinoma, grossly 2 cm from the closest parenchymal margin. Tumor seen in lymphatic/vascular spaces and in alveoli of parenchymal margin (FS A2)-Results verbally called to CV OR 9 at 5:20 PM 1Performed. The interpretation of this case included the use of immunohistochemistry or special stains.Block A7 J92-juaeqonsPNI9-lutzrawrRnnjj A9Cd31- positive around tumor nestsD2-40- positive around tumornestsBlock I88CSG0-rcheutriLpqlrbu Slides Examined: In- house known positive controls were evaluatedalong with the test tissue. These control slides run alongside of the patients sample show appropriate staining. Internal positive and negative controls when available are evaluated Immunohistochemistry technical testing was performed at [facility], Pathology Laboratory where itwas developed and its performance characteristics were determined. It has not been cleared or approved by the U.S. Food and Drug Administration. The FDA has determined that such clearance or approval is not necessary. The test is used for clinical purposes. It should not be regarded as investigationalor for research. This laboratory is certified under the Clinical Laboratory Improvement Amendments of 1988 (CLIA-88) as qualified to perform high complexity clinical laboratory testing.[facility], Department of Pathology, [address] [place] [address], [facility] of [facility], [address] [place] [address], [facility], Department of Pathology, [address] [place] [address], PMY-Glucose [id number] 17:18:00 Test Item Value Reference Range Interpretation Comments POC-Glucose Meter (test 253 mg/dL 70-110 H : TE STED AT [facility] code = 1538) [address] [place] [address] [place], 770 30: Orientation And Mobility Specialist/Techni ling ID = [id number] for LELO REDDY Lab Interpretation (test Abnormal code = 57113-6) [facility]POCT-GLUCOSE [id number] 17:18:00 Test Item Value Reference Range Interpretation Comments POC-GLUCOSE METER 253 mg/dL 70-110 H : TESTED A T [facility] 6720 (BEAKER) (test code = FLAVIO Bolden [facility], 1538) [address]019: Orientation And Mobility Specialist/Techni ling ID = [id number] for LELO FREDERICK POCT-GLUCOSE [id number] 11:32:00 Test Item Value Reference Range Interpretation Comments POC-GLUCOSE METER 236 mg/dL 70-110 H : TESTED A T [facility] 6720 (BEAKER) (test code [facility], = 1538) 28822: Orientation And Mobility Specialist/Techni ling ID = [id number] for Valeriy Choi RAD, CHEST, 1 VIEW, NON [id number] 09:52:00Reason for exam:->post thoracic surgery, chest tubes in placeShould this be [facility]->[facility]OE : 1945 Sex: FFINAL REPORT CLINICAL HISTORY: post thoracic surgery, chest tubes in place TECHNIQUE: 1 view of the chest. COMPARISON: 04/29/2021 IMPRESSION: There is no evidence for a chest tube. There is no pneumothorax. Bilateral pleural parenchymal opacities are unchanged. The cardiomediastinal silhouette is magnified by technique. Signed: Africa Paulino [facility] Verified Date/Time: 0 04/30/2021 09:52:28 Reading Location: [facility] Radiology Reading Room Electronically signedby: AFRICA PAULINO M.D. on 04/30/2021 09:52 AMXR chest 1 view portable / [id number] 09:52:00Interface, External Ris In - 04/30/2021 9:54 AM CDTFINAL REPORT CLINICAL HISTORY: post thoracic surgery, chest tubes in place TECHNIQUE: 1 view of the chest. COMPARISON: 04/29/2021 IMPRESSION: There is no evidence for a chest tube. There is no pneumothorax. Bilateral pleural parenchymal opacities are unchanged. The cardiomediastinal silhouette is magnified by technique. Signed:Africa Paulino MDReport Verified Date/Time: 04/30/2021 09:52:28 Reading Location: [facility] Radiology Reading Room [facility] [id number] 07:50:00 Test Item Value Reference Range Interpretation Comments POC-GLUCOSE METER 191 mg/dL 70-110 H : TESTED A T [facility] 6720 (BEAKER) (test code [facility], = 1538) 13373: Orientation And Mobility Specialist/Techni ling ID = [id number] for Valeriy Choi Basic Metabolic [id number] 03:21:00 Test Item Value Reference Range Interpretation Comments Sodium (test code = 139 meq/L 558-123 2345-2) Potassium (test code = 4.6 meq/L 3.5-5.1 2823-3) Chloride (test code = 103 meq/L 98-107 2075-0) CO2 (test code = 25 meq/L 22-29 8-9) BUN (test code = 21 mg/dL 7- 3094-0) Creatinine (test code 1.12 mg/dL 0.57-1.25 = 2160-0) Glucose (test code = 191 mg/dL 70-105 H 2345-7) Calcium (test code = 9.7 mg/dL 8.4-10.2 79905-6) EGFR (test code = 47 mL/min/1.73 [place] [address]-4) NOT ACCURATE CREATININE CLEARANCE IN PREDICTING GLOMERULAR FILTRATION RATE . ESTIMATED GFR I S NOT APPLICABLE FOR DIALYSIS PATIENTS. YEVGENIY (test code = YEVGENIY) Orientation And Mobility Specialist ID - DELVIS Olvera Lab Interpretation Abnormal (test code = 13974-3) [facility] ValleyMagnesium2021-07-06 03:21:00 Test Item Value Reference Range Interpretation Comments Magnesium (test code = 1.8 mg/dL 1.6-2.6 63881-9) YEVGENIY (test code = YEVGENIY) Orientation And Mobility Specialist ID - DELVIS Olvera Lab Interpretation (test Normal code = 25808-3) [facility] ValleyBASIC METABOLIC [id number] 03:21:00 Test Item Value Reference Range Interpretation Comments SODIUM (BEAKER) 139 meq/L 136-145 (test code = 381) POTASSIUM (BEAKER) 4.6 meq/L 3.5-5.1 (test code = 379) CHLORIDE (BEAKER) 103 meq/L 98-107 (test code = 382) CO2 (BEAKER) (test 25 meq/L 22-29 code = 355) BLOOD UREA NITROGEN 21 mg/dL 7-21 (BEAKER) (test code = 354) CREATININE (BEAKER) 1.12 mg/dL 0.57-1.25 (test code = 358) GLUCOSE RANDOM 191 mg/dL 70-105 H (BEAKER) (test code = 652) CALCIUM (BEAKER) 9.7 mg/dL 8.4-10.2 (test code = 697) EGFR (BEAKER) (test 47 mL/min/1.73 ESTIMA [facility] GFR IS code = 1092) sq m NOT ACCURATE CREATININE CLEARANCE IN PREDICTING GLOMERULAR FILTRATION RATE . ESTIMATED GFR I S NOT APPLICABLE FOR DIALYSIS PATIEN TS. Orientation And Mobility Specialist ID - DELVIS [id number] 03:21:00 Test Item Value Reference Range Interpretation Comments MAGNESIUM (BEAKER) (test code = 1.8 mg/dL 1.6-2.6 627) Orientation And Mobility Specialist ID - DELVIS MCBC with platelet count + automated [id number] 03:03:00 Test Item Value Reference Range Interpretation Comments WBC (test code = 6690-2) 9.3 See_Comment [A utomated message] The system Cree generated this result transmitted ref erence range: 3.5 - 10 .5 K/L. The refe rence range was not u sed to interpret this result as normal/abnor mal. RBC (test code = 789-8) 3.65 See_Comment L [Au tomated message] The system Cree generated this result transmitted ref erence range: 3.93 - 5 .22 M/L. The refe rence range was not u sed to interpret this result as normal/abnor mal. MCHC (test code = 786-4) 31.7 See_Comment L [A utomated message] The system Cree generated this result transmitted ref erence range: 32.2 - 3 5.5 GM/DL. The refe rence range was not u sed to interpret this result as normal/abnor mal. Hematocrit (test code = 33.1 % 34.1-44.9 L 4544-3) MCV (test code = 787-2) 90.7 fL 79.4-94.8 MCH (test code = 785-6) 28.8 pg 25.6-32.2 RDW (test code = 788-0) 13.9 % 11.7-14.4 Platelets (test code = 296 See_Comment [Aut omated message] 777-3) The system Cree generated this result transmitted ref erence range: 150 - 45 0 K/CU MM. The referen ce range was not u sed to interpret this result as normal/abnor mal. MPV (test code = 9.8 fL 9.4-12.3 22607-5) nRBC (test code = 413) 0 See_Comment [Aut omated message] The system Cree generated this result transmitted ref erence range: 0 - 0 /1 00 WBC. The refere nce range was not u sed to interpret this result as normal/abnor mal. % Neutros (test code = 67 % 429) % Lymphs (test code = 16 % 430) % Monos (test code = 7 % 431) % Eos (test code = 432) 6 % % Baso (test code = 437) 2 % # Neutros (test code = 6.24 See_Comment H [Aut omated message] 670) The system Cree generated this result transmitted ref erence range: 1.56 - 6 .13 K/L. The refe rence range was not u sed to interpret this result as normal/abnor mal. # Lymphs (test code = 1.45 See_Comment [Auto mated message] 414) The system Cree generated this result transmitted ref erence range: 1.18 - 3 .74 K/L. The refe rence range was not u sed to interpret this result as normal/abnor mal. # Monos (test code = 0.63 See_Comment H [Autom ated message] 415) The system Cree generated this result transmitted ref erence range: 0.24 - 0 .36 K/L. The refe rence range was not u sed to interpret this result as normal/abnor mal. # Eos (test code = 416) 0.57 See_Comment H [Au tomated message] The system Cree generated this result transmitted ref erence range: 0.04 - 0 .36 K/L. The refe rence range was not u sed to interpret this result as normal/abnor mal. # Baso (test code = 417) 0.14 See_Comment H [A utomated message] The system Cree generated this result transmitted ref erence range: 0.01 - 0 .08 K/L. The refe rence range was not u sed to interpret this result as normal/abnor mal. Immature 3 % 0-1 H Granulocytes-Relative (test code = 2801) Lab Interpretation (test Abnormal code = 21954-0) [facility] W/PLT COUNT & AUTO [id number] 03:03:00 Test Item Value Reference Range Interpretation Comments WHITE BLOOD CELL COUNT (BEAKER) 9.3 K/ L 3.5-10.5 (test code = 775) RED BLOOD CELL COUNT (BEAKER) 3.65 M/ L 3.93-5.22 L (test code = 761) HEMOGLOBIN (BEAKER) (test code = 10.5 GM/DL 11.2-15.7 L 410) HEMATOCRIT (BEAKER) (test code = 33.1 % 34.1-44.9 L 411) MEAN CORPUSCULAR VOLUME (BEAKER) 90.7 fL 79.4-94.8 (test code = 753) MEAN CORPUSCULAR HEMOGLOBIN 28.8 pg 25.6-32.2 (BEAKER) (test code = 751) MEAN CORPUSCULAR HEMOGLOBIN CONC 31.7 GM/DL 32.2-35.5 L (BEAKER) (test code = 752) RED CELL DISTRIBUTION WIDTH 13.9 % 11.7-14.4 (BEAKER) (test code = 412) PLATELET COUNT (BEAKER) (test 296 K/CU MM 150-450 code = 756) MEAN PLATELET VOLUME (BEAKER) 9.8 fL 9.4-12.3 (test code = 754) NUCLEATED RED BLOOD CELLS 0 /100 WBC 0-0 (BEAKER) (test code = 413) NEUTROPHILS RELATIVE PERCENT 67 % (BEAKER) (test code = 429) LYMPHOCYTES RELATIVE PERCENT 16 % (BEAKER) (test code = 430) MONOCYTES RELATIVE PERCENT 7 % (BEAKER) (test code = 431) EOSINOPHILS RELATIVE PERCENT 6 % (BEAKER) (test code = 432) BASOPHILS RELATIVE PERCENT 2 % (BEAKER) (test code = 437) NEUTROPHILS ABSOLUTE COUNT 6.24 K/ L 1.56-6.13 H (BEAKER) (test code = 670) LYMPHOCYTES ABSOLUTE COUNT 1.45 K/ L 1.18-3.74 (BEAKER) (test code = 414) MONOCYTES ABSOLUTE COUNT (BEAKER) 0.63 K/ L 0.24-0.36 H (test code = 415) EOSINOPHILS ABSOLUTE COUNT 0.57 K/ L 0.04-0.36 H (BEAKER) (test code = 416) BASOPHILS ABSOLUTE COUNT (BEAKER) 0.14 K/ L 0.01-0.08 H (test code = 417) IMMATURE GRANULOCYTES-RELATIVE 3 % 0-1 H PERCENT (BEAKER) (test code = 2801) POCT-GLUCOSE [id number] 22:31:00 Test Item Value Reference Range Interpretation Comments POC-GLUCOSE METER 185 mg/dL 70-110 H : TESTED A T [facility] 6720 (BEAKER) (test code = F[place]IO [place], 1538) 407[address]: Orientation And Mobility Specialist/Techni ling ID = [id number] for NATALIE RICHARDSON POCT-GLUCOSE [id number] 16:45:00 Test Item Value Reference Range Interpretation Comments POC-GLUCOSE METER 217 mg/dL 70-110 H : TESTED A T [facility] 6720 (BEAKER) (test code = [facility], 1538) 29145: Orientation And Mobility Specialist/Techni ling ID = [id number] for DE NNIS, LELO POCT-GLUCOSE [id number] 11:43:00 Test Item Value Reference Range Interpretation Comments POC-GLUCOSE METER 216 mg/dL 70-110 H : TESTED A T [facility] 6720 (BEAKER) (test code = [facility], 1538) 95883: Orientation And Mobility Specialist/Techni ling ID = [id number] for DE NNIS, LELO POCT-GLUCOSE [id number] 09:19:00 Test Item Value Reference Range Interpretation Comments POC-GLUCOSE METER 251 mg/dL 70-110 H : TESTED A T [facility] 6720 (BEAKER) (test code = [facility], 1538) 10211: Orientation And Mobility Specialist/Techni ling ID = [id number] for DE NNIS, LELO BASIC METABOLIC [id number] 06:17:00 Test Item Value Reference Range Interpretation Comments SODIUM (BEAKER) 136 meq/L 136-145 (test code = 381) POTASSIUM (BEAKER) 4.4 meq/L 3.5-5.1 (test code = 379) CHLORIDE (BEAKER) 100 meq/L 98-107 (test code = 382) CO2 (BEAKER) (test 25 meq/L 22-29 code = 355) BLOOD UREA NITROGEN 24 mg/dL 7-21 H (BEAKER) (test code = 354) CREATININE (BEAKER) 1.14 mg/dL 0.57-1.25 (test code = 358) GLUCOSE RANDOM 240 mg/dL 70-105 H (BEAKER) (test code = 652) CALCIUM (BEAKER) 9.5 mg/dL 8.4-10.2 (test code = 697) EGFR (BEAKER) (test 46 mL/min/1.73 ESTIMA ASNFORD GFR IS code = 1092) sq m NOT ACCURATE CREATININE CLEARANCE IN PREDICTING GLOMERULAR FILTRATION RATE . ESTIMATED GFR I S NOT APPLICABLE FOR DIALYSIS PATIEN TS. Orientation And Mobility Specialist ID - PIAYA [id number] 06:17:00 Test Item Value Reference Range Interpretation Comments MAGNESIUM (BEAKER) (test code = 2.0 mg/dL 1.6-2.6 627) Orientation And Mobility Specialist ID - PIAYA LPOCT-GLUCOSE [id number] 06:16:00 Test Item Value Reference Range Interpretation Comments POC-GLUCOSE METER 218 mg/dL 70-110 H : TESTED A T [facility] 6720 (BEAKER) (test code = FLAVIO Bolden [facility], 1538) 68[address]: Orientation And Mobility Specialist/Techni ling ID = [id number] for MS IBI, MNCEDISI CBC W/PLT COUNT & AUTO [id number] 05:08:00 Test Item Value Reference Range Interpretation Comments WHITE BLOOD CELL COUNT (BEAKER) 10.3 K/ L 3.5-10.5 (test code = 775) RED BLOOD CELL COUNT (BEAKER) 3.64 M/ L 3.93-5.22 L (test code = 761) HEMOGLOBIN (BEAKER) (test code = 10.4 GM/DL 11.2-15.7 L 410) HEMATOCRIT (BEAKER) (test code = 33.2 % 34.1-44.9 L 411) MEAN CORPUSCULAR VOLUME (BEAKER) 91.2 fL 79.4-94.8 (test code = 753) MEAN CORPUSCULAR HEMOGLOBIN 28.6 pg 25.6-32.2 (BEAKER) (test code = 751) MEAN CORPUSCULAR HEMOGLOBIN CONC 31.3 GM/DL 32.2-35.5 L (BEAKER) (test code = 752) RED CELL DISTRIBUTION WIDTH 14.0 % 11.7-14.4 (BEAKER) (test code = 412) PLATELET COUNT (BEAKER) (test 293 K/CU MM 150-450 code = 756) MEAN PLATELET VOLUME (BEAKER) 10.0 fL 9.4-12.3 (test code = 754) NUCLEATED RED BLOOD CELLS 0 /100 WBC 0-0 (BEAKER) (test code = 413) NEUTROPHILS RELATIVE PERCENT 77 % (BEAKER) (test code = 429) LYMPHOCYTES RELATIVE PERCENT 10 % (BEAKER) (test code = 430) MONOCYTES RELATIVE PERCENT 5 % (BEAKER) (test code = 431) EOSINOPHILS RELATIVE PERCENT 5 % (BEAKER) (test code = 432) BASOPHILS RELATIVE PERCENT 1 % (BEAKER) (test code = 437) NEUTROPHILS ABSOLUTE COUNT 7.95 K/ L 1.56-6.13 H (BEAKER) (test code = 670) LYMPHOCYTES ABSOLUTE COUNT 0.97 K/ L 1.18-3.74 L (BEAKER) (test code = 414) MONOCYTES ABSOLUTE COUNT (BEAKER) 0.53 K/ L 0.24-0.36 H (test code = 415) EOSINOPHILS ABSOLUTE COUNT 0.50 K/ L 0.04-0.36 H (BEAKER) (test code = 416) BASOPHILS ABSOLUTE COUNT (BEAKER) 0.11 K/ L 0.01-0.08 H (test code = 417) IMMATURE GRANULOCYTES-RELATIVE 2 % 0-1 H PERCENT (BEAKER) (test code = 2801) RAD, CHEST, 1 VIEW, NON [id number] 05:00:00Reason for exam:->post thoracic surgery, chest tubes in placeShould [facility] : 1945 Sex: FFINAL REPORT RAD, CHEST, 1 VIEW, NON DEPT INDICATION: post thoracic surgery, chest tubes in place COMPARISON: Prior day's exam FINDINGS: Portable frontal view of the chest. IMPRESSION: Support Lines: None Lungs and pleura: Unchanged bibasilar atelectasis. No new consolidation or effusion. No pneumothorax.Heart and mediastinum: Stable contours.Additional findings: None. Signed: Margaret Mata Verified Date/Time: 04/29/2021 05:00:18 POCT-GLUCOSE [id number] 22:41:00 Test Item Value Reference Range Interpretation Comments POC-GLUCOSE METER 265 mg/dL 70-110 H : TESTED A T [facility] 6720 (BEAKER) (test code = F[place], 1538) 826[address]: Orientation And Mobility Specialist/Techni ling ID = [id number] for AMBIKA KABA Anaerobic [id number] 14:50:00 Test Item Value Reference Range Interpretation Comments Result (test code = No anaerobes isolated 6463-4) [facility] [id number] 14:50:00 Test Item Value Reference Range Interpretation Comments CULTURE (BEAKER) (test No anaerobes isolated code = 1095) POCT-GLUCOSE [id number] 11:42:00 Test Item Value Reference Range Interpretation Comments POC-GLUCOSE METER 212 mg/dL 70-110 H : TESTED A T [facility] 6720 (BEAKER) (test code = FLAVIO Bolden [facility], 1538) 00825: Orientation And Mobility Specialist/Techni ling ID = [id number] for ADELAIDA SALAZAR Surgically obtained culture + gram [id number] 11:23:00 Test Item Value Reference Range Interpretation Comments Result (test code = 6463-4) No growth Gram Stain Result (test No organisms seen code = 1123) [facility]AM [id number] 11:23:00 Test Item Value Reference Range Interpretation Comments CULTURE (BEAKER) (test code No growth = 1095) GRAM STAIN RESULT (BEAKER) Rare WBCs (test code = 1123) GRAM STAIN RESULT (BEAKER) No organisms seen (test code = 58105) RAD, CHEST, 1 VIEW, NON [id number] 09:01:00Reason for exam:->post thoracic surgery, chest tubes in placeShould this be performed [facility]->[facility] : 1945 Sex: FFINAL REPORT Chest, one view. HISTORY: post thoracic surgery, chest tubes in place COMPARISON: Radiograph from yesterday IMPRESSION: The left basilar atelectasis slightly increased. The right midlung atelectasis slightly increased. Pulmonary venous congestion. No pleural effusion or pneumothorax. The cardiac silhouette is unchanged in size. No acute bone abnormality. There has likely been a prior left acromioclavicular injury. Signed: Em Malik MDReport Verified Date/Time: 04/28/2021 09:01:44 Reading Location: [facility] C0X Ortho Consult Reading Room POCT-GLUCOSE [id number] 07:15:00 Test Item Value Reference Range Interpretation Comments POC-GLUCOSE METER 196 mg/dL 70-110 H : TESTED A T [facility] 6720 (BEAKER) (test code = [facility], 1538) 70393: Orientation And Mobility Specialist/Techni ling ID = [id number] for ADELAIDA SALAZAR BASIC METABOLIC [id number] 06:04:00 Test Item Value Reference Range Interpretation Comments SODIUM (BEAKER) 135 meq/L 136-145 L (test code = 381) POTASSIUM (BEAKER) 4.5 meq/L 3.5-5.1 (test code = 379) CHLORIDE (BEAKER) 99 meq/L 98-107 (test code = 382) CO2 (BEAKER) (test 25 meq/L 22-29 code = 355) BLOOD UREA NITROGEN 19 mg/dL 7-21 (BEAKER) (test code = 354) CREATININE (BEAKER) 1.03 mg/dL 0.57-1.25 (test code = 358) GLUCOSE RANDOM 212 mg/dL 70-105 H (BEAKER) (test code = 652) CALCIUM (BEAKER) 9.6 mg/dL 8.4-10.2 (test code = 697) EGFR (BEAKER) (test 52 mL/min/1.73 ESTIMA SANFORD GFR IS code = 1092) sq m NOT ACCURATE CREATININE CLEARANCE IN PREDICTING GLOMERULAR FILTRATION RATE . ESTIMATED GFR I S NOT APPLICABLE FOR DIALYSIS PATIEN TS. Orientation And Mobility Specialist ID - MOLLY [id number] 06:04:00 Test Item Value Reference Range Interpretation Comments MAGNESIUM (BEAKER) (test code = 1.8 mg/dL 1.6-2.6 627) Orientation And Mobility Specialist ID - MOLLY LCBC W/PLT COUNT & AUTO [id number] 05:23:00 Test Item Value Reference Range Interpretation Comments WHITE BLOOD CELL COUNT (BEAKER) 11.8 K/ L 3.5-10.5 H (test code = 775) RED BLOOD CELL COUNT (BEAKER) 3.73 M/ L 3.93-5.22 L (test code = 761) HEMOGLOBIN (BEAKER) (test code = 10.8 GM/DL 11.2-15.7 L 410) HEMATOCRIT (BEAKER) (test code = 33.6 % 34.1-44.9 L 411) MEAN CORPUSCULAR VOLUME (BEAKER) 90.1 fL 79.4-94.8 (test code = 753) MEAN CORPUSCULAR HEMOGLOBIN 29.0 pg 25.6-32.2 (BEAKER) (test code = 751) MEAN CORPUSCULAR HEMOGLOBIN CONC 32.1 GM/DL 32.2-35.5 L (BEAKER) (test code = 752) RED CELL DISTRIBUTION WIDTH 14.2 % 11.7-14.4 (BEAKER) (test code = 412) PLATELET COUNT (BEAKER) (test 262 K/CU MM 150-450 code = 756) MEAN PLATELET VOLUME (BEAKER) 10.0 fL 9.4-12.3 (test code = 754) NUCLEATED RED BLOOD CELLS 0 /100 WBC 0-0 (BEAKER) (test code = 413) NEUTROPHILS RELATIVE PERCENT 83 % (BEAKER) (test code = 429) LYMPHOCYTES RELATIVE PERCENT 7 % (BEAKER) (test code = 430) MONOCYTES RELATIVE PERCENT 5 % (BEAKER) (test code = 431) EOSINOPHILS RELATIVE PERCENT 4 % (BEAKER) (test code = 432) BASOPHILS RELATIVE PERCENT 1 % (BEAKER) (test code = 437) NEUTROPHILS ABSOLUTE COUNT 9.75 K/ L 1.56-6.13 H (BEAKER) (test code = 670) LYMPHOCYTES ABSOLUTE COUNT 0.80 K/ L 1.18-3.74 L (BEAKER) (test code = 414) MONOCYTES ABSOLUTE COUNT (BEAKER) 0.53 K/ L 0.24-0.36 H (test code = 415) EOSINOPHILS ABSOLUTE COUNT 0.47 K/ L 0.04-0.36 H (BEAKER) (test code = 416) BASOPHILS ABSOLUTE COUNT (BEAKER) 0.10 K/ L 0.01-0.08 H (test code = 417) IMMATURE GRANULOCYTES-RELATIVE 1 % 0-1 PERCENT (BEAKER) (test code = 2801) POCT-GLUCOSE [id number] 21:51:00 Test Item Value Reference Range Interpretation Comments POC-GLUCOSE METER 187 mg/dL 70-110 H : TESTED A T [facility] 6720 (BEAKER) (test code = [facility], 1538) 53268: Orientation And Mobility Specialist/Techni ling ID = [id number] for UNIQUE ARREOLA POCT-GLUCOSE [id number] 17:14:00 Test Item Value Reference Range Interpretation Comments POC-GLUCOSE METER 205 mg/dL 70-110 H : TESTED A T [facility] 6720 (BEAKER) (test code = [facility], 1538) 50209: Orientation And Mobility Specialist/Techni ling ID = [id number] for ADELAIDA SALAZAR RAD, CHEST, 1 VIEW, NON [id number] 16:39:00Reason for exam:->CT removal [facility] : 1945 Sex: FFINAL REPORT Chest, one view. HISTORY: CT removal COMPARISON: Radiograph from earlier today IMPRESSION: Interval removal of the right-sided chest tubes. The bilateral scattered atelectasis is unchanged. A trace right pleural effusion is unchanged. No pneumothorax. The cardiac silhouette is unchanged in size. No acute bone abnormality. There is widening of the left acromial clavicular joint, likely due to a prior injury. Signed: Em Malik MDReport Verified Date/Time:04/27/2021 16:39:59 Reading Location: [facility] C013X Ortho Consult Reading Room POCT-GLUCOSE [id number] 11:42:00 Test Item Value Reference Range Interpretation Comments POC-GLUCOSE METER 322 mg/dL 70-110 H : TESTED A T [facility] 6720 (BEAKER) (test code = [place] Bold[place], 1538) 46[address]: Orientation And Mobility Specialist/Techni ling ID = [id number] for ADELAIDA SALAZAR, CHEST, 1 VIEW, NON [id number] 08:00:00Reason for exam:->post thoracic surgery, chest tubes in placeShould [facility] be performed [facility]->[facility] : 1945 Sex: FFINAL REPORT Chest, one view. HISTORY: post thoracic surgery, chest tubes in place COMPARISON: Radiograph from yesterday IMPRESSION: The right chest tubes are unchanged in position. The bilateral lung opacities are unchanged. A small left pleural effusions unchanged. Nopneumothorax. The cardiac silhouette is unchanged in size. No acute bone abnormality. Signed: Em Malik MDReport Verified Date/Time: 04/27/2021 08:00:54 Reading Location: [address] Ortho Consult Reading Room POCT-GLUCOSE [id number] 07:39:00 Test Item Value Reference Range Interpretation Comments POC-GLUCOSE METER 209 mg/dL 70-110 H : TESTED A T [facility] 6720 (BEAKER) (test code = [place], 1538) 06188: Orientation And Mobility Specialist/Techni ling ID = [id number] for ADELAIDA SALAZAR BASIC METABOLIC [id number] 04:23:00 Test Item Value Reference Range Interpretation Comments SODIUM (BEAKER) 137 meq/L 136-145 (test code = 381) POTASSIUM (BEAKER) 4.1 meq/L 3.5-5.1 (test code = 379) CHLORIDE (BEAKER) 100 meq/L 98-107 (test code = 382) CO2 (BEAKER) (test 28 meq/L 22-29 code = 355) BLOOD UREA NITROGEN 16 mg/dL 7-21 (BEAKER) (test code = 354) CREATININE (BEAKER) 1.01 mg/dL 0.57-1.25 (test code = 358) GLUCOSE RANDOM 215 mg/dL 70-105 H (BEAKER) (test code = 652) CALCIUM (BEAKER) 9.1 mg/dL 8.4-10.2 (test code = 697) EGFR (BEAKER) (test 53 mL/min/1.73 ESTIMA SANFORD GFR IS code = 1092) sq m NOT ACCURATE CREATININE CLEARANCE IN PREDICTING GLOMERULAR FILTRATION RATE . ESTIMATED GFR I S NOT APPLICABLE FOR DIALYSIS PATIEN TS. Orientation And Mobility Specialist ID - DELVIS [id number] 04:23:00 Test Item Value Reference Range Interpretation Comments MAGNESIUM (BEAKER) (test code = 2.1 mg/dL 1.6-2.6 627) Orientation And Mobility Specialist ID - DELVIS MBlood gas, arterial: If A-Line [id number] 04:02:00 Test Item Value Reference Range Interpretation Comments pH, Arterial (test code 7.43 7.35-7.45 = 2744-1) pCO2, Arterial (test 47 See_Comment H [Autom ated message] code = 2019-8) The system [employer] generated this result transmit sanford reference range : 35 - 45 mm Hg. The reference range was not used to interpret this result as normal/abnormal . pO2, Arterial (test 116 See_Comment H [Automa sanford message] code = 2703-7) The system [employer] generated this result transmit sanford reference range : 80 - 90 mm Hg. The reference range was not used to interpret this result as normal/abnormal . O2 Sat, Arterial (test 98.3 % 96-97 H code = 2708-6) HCO3, Arterial (test 31 mmol/L 21-29 H code = 1960-4) Base Excess, Arterial 5.5 mmol/L -2-3 H (test code = 1925-7) Patient Temperature 37.0 (test code = 8310-5) Lab Interpretation Abnormal (test code = 43456-0) [facility] [id number] 04:02:00 Test Item Value Reference Range Interpretation Comments PH ARTERIAL (BEAKER) (test code = 7.43 7.35-7.45 383) PCO2 ARTERIAL (BEAKER) (test code 47 mm Hg 35-45 H = 384) PO2 ARTERIAL (BEAKER) (test code = 116 mm Hg 80-90 H 385) O2 SATURATION ARTERIAL (BEAKER) 98.3 % 96.0-97.0 H (test code = 386) HCO3 ARTERIAL (BEAKER) (test code 31 mmol/L 21-29 H = 388) BASE EXCESS ARTERIAL (BEAKER) 5.5 mmol/L -2.0-3.0 H (test code = 387) PATIENT TEMPERATURE (BEAKER) (test 37.0 code = 1818) CBC W/PLT COUNT & AUTO [id number] 04:00:00 Test Item Value Reference Range Interpretation Comments WHITE BLOOD CELL COUNT (BEAKER) 9.9 K/ L 3.5-10.5 (test code = 775) RED BLOOD CELL COUNT (BEAKER) 3.67 M/ L 3.93-5.22 L (test code = 761) HEMOGLOBIN (BEAKER) (test code = 10.6 GM/DL 11.2-15.7 L 410) HEMATOCRIT (BEAKER) (test code = 33.0 % 34.1-44.9 L 411) MEAN CORPUSCULAR VOLUME (BEAKER) 89.9 fL 79.4-94.8 (test code = 753) MEAN CORPUSCULAR HEMOGLOBIN 28.9 pg 25.6-32.2 (BEAKER) (test code = 751) MEAN CORPUSCULAR HEMOGLOBIN CONC 32.1 GM/DL 32.2-35.5 L (BEAKER) (test code = 752) RED CELL DISTRIBUTION WIDTH 14.0 % 11.7-14.4 (BEAKER) (test code = 412) PLATELET COUNT (BEAKER) (test 255 K/CU MM 150-450 code = 756) MEAN PLATELET VOLUME (BEAKER) 9.9 fL 9.4-12.3 (test code = 754) NUCLEATED RED BLOOD CELLS 0 /100 WBC 0-0 (BEAKER) (test code = 413) NEUTROPHILS RELATIVE PERCENT 81 % (BEAKER) (test code = 429) LYMPHOCYTES RELATIVE PERCENT 9 % (BEAKER) (test code = 430) MONOCYTES RELATIVE PERCENT 6 % (BEAKER) (test code = 431) EOSINOPHILS RELATIVE PERCENT 2 % (BEAKER) (test code = 432) BASOPHILS RELATIVE PERCENT 1 % (BEAKER) (test code = 437) NEUTROPHILS ABSOLUTE COUNT 8.02 K/ L 1.56-6.13 H (BEAKER) (test code = 670) LYMPHOCYTES ABSOLUTE COUNT 0.91 K/ L 1.18-3.74 L (BEAKER) (test code = 414) MONOCYTES ABSOLUTE COUNT (BEAKER) 0.55 K/ L 0.24-0.36 H (test code = 415) EOSINOPHILS ABSOLUTE COUNT 0.23 K/ L 0.04-0.36 (BEAKER) (test code = 416) BASOPHILS ABSOLUTE COUNT (BEAKER) 0.06 K/ L 0.01-0.08 (test code = 417) IMMATURE GRANULOCYTES-RELATIVE 1 % 0-1 PERCENT (BEAKER) (test code = 2801) POCT-GLUCOSE [id number] 22:47:00 Test Item Value Reference Range Interpretation Comments POC-GLUCOSE METER 234 mg/dL 70-110 H : TESTED A T [facility] 6720 (BEAKER) (test code = F[place]IO [place], 1538) 66[address]: Orientation And Mobility Specialist/Techni ling ID = [id number] for Julio Cesar Calvert POCT-GLUCOSE [id number] 18:06:00 Test Item Value Reference Range Interpretation Comments POC-GLUCOSE METER 204 mg/dL 70-110 H : TESTED A T [facility] 6720 (ROBAKER) (test code [facility], = 1538) 63734: Orientation And Mobility Specialist/Techni ling ID = [id number] for Valeriy Choi [id number] 14:38:00 Test Item Value Reference Range Interpretation Comments Case Report (test code Medical Cytology = 104) Report Case: [id number] Authorizing Provider: Floyd Grimaldo MD Collected: 04/25/2021 04:41 PM Ordering Location: [address] Received: 04/26/2021 08:43 AM Pathologist: Raheem Vásquez MD Specimen: Pericardial DIAGNOSIS (test code = [id number] 3220) FuZzEwMzNcZnRuYmpcdWMx IHtccnRmMVxlcGljOTIwMl xzbcWqMYRexHGgX2Spxdyr QGuiZF5vAZ2atHmdaXYcoD YzVLBoBdYpj9rzc658sYWy b0dsPWBFydcicMb6wSjmQ1 7ub4I5MeooZ86qwBHeAKyw bGFpblxmczIwIFBFUklDQV JESUFMIEZMVUlEIChDWVRP C6EDRbQdTifoZJKpHAIsKR CVAXwQAKrLNYEOY0WrOWQT GOuKHI1NYGVjeFVwsPtsmu TuWKgby5YaUJlaSUQiJJ0x kNbdOBIlZP9rUJEzX7koiL 7maid5WgBjHATuStD1ISWq ieF0Ped9IKQxWRhyr0hoe3 CkIEOjMFc7mTomLjVhQUSm t5hmwcVlCgLsOGOhMOWqOI XcjBHwM094z0ppk5rigcQa tEV7WHPcMRI8BRnecoWuac R7XHuspYInWnR5MQxvolKe NXlchnUnqtPdWue9XYXpW1 83YLW9xOaml3eqIOK3XKLn IQNiKaRlBj2bbJJnO762MQ WwGEPSSFLgvTo1HSBhegAt atRrvCNFw661N962h4dzNM WxjmXrwNmHsezhc6jlK141 XHBhcGVydzEyMjQwXHBhcG ImhAO8ZOOdAW1lkrheVQmy VUbkSRNpkjK3CSFzkAZaX7 FuGTEoCS1nbikpRVQ9EAtw QXLbSOO3KhJnOSYdj5Emgb e5OeUpam3lxq12OGQ0k2Qo iLsqSZD6UMT3CuVlZq5mcD WyEYTbBV2kMtQrxQUoRGCm ak03kStbQYakTUJ2VPJofk Opk4Jvb6zxTlIzafVdI5tz W7HcFZIyBWTpVURqCsAkeh Pje5Iea4DirNUdqSl3d3ur XZEfMQNaqCgwx1jhEVZ2VT IhiLZvR3dunX8gVXIsGV3o ruotx3jcZPvcOGqqAFUfjI Q1obT1YCOefMYpZ2VrpV5w MKVfVKyvMGIqahi4JlSvMy 9vdGVyeTcyMFxzYmtwYWdl XHBnbmNvbnRccGduZGVjXH BsYWluXHBsYWluXGYwXGZz MjRccWxcbGFuZzEwMzNcaG ljaFxmMVxkYmNoXGYxXGxv W7bpKlLrLsQwYhu2ANBvlL ObCLSxZwf2UWHkyJOpZJVI lWftyJ4pHEXcxNkoxF6ipB X2ECVbncTrzTVFyA7vPRDN vN1iReT2HlUtUkB9RPZ4BY JccGFyfX0= CPT Code(s) (test code z4knrYPkLBAixPT9OsQcXL = 3357) Jkn1dlf4RefZFnhIKhIMgo rYXydsZqzn72dVD8oX18QG 0aGRDeMrJ8VASbshC5Mxg6 ABCrQCDcnHZlS480j0xoz3 xhcjOhnMB7oFdcQGCoQJLg YWluXGZzMjAgODgxMDhccG FyfQ== CLINICAL DATA (test j0furZAfUZLdzFU5EnCrAM code = 3355) Igy0jnx0HalTYxjKKtPAhe qNGsbrZtje75jHI5dI65MA 1pHOYxOvL3TWGhoyO1Wgf6 SKDzLVKlePVnW866g4aom1 pfzbCzfBF9rUdiOFQaXLBl YWluXGZzMjAgUGVyaWNhcm UwGYakBQNcgFSkc241DXPc BLJyqCObaZnvtZW2oUVhjs Vps0SdYI4bFXVaGPicxUQj aWFzdGluYWwgbHltcGhhZG Lrw2KslJm4ONCdbu7= SPECIMEN SOURCE (test o8aqcWYvDEUquRF8LzXuON code = 3377) Etd4rtq8DkcGZzkDVtWMog lGFricQwgq18aGA5uI48TD 3wJFLfQzL4ZHKbruX9Nqk5 KATdLSJmpPJgE444i3igx3 ifchKxoKF4rDyoRTCeOZZh YWluXGZzMjAgUEVSSUNBUk RJQUwgRkxVSUQgXHBhcn0= GROSS DESCRIPTION (test u5sgmWVyQRLgfCN3KaNnZF code = 3366) Hnx8rkw8ZplXHiwMDiYMgj pJCwosBeab95hEI5fX52GT 8nUGJjUfK7AIMxnwB4Hsy5 PMNzGVDcjPVhJ580x4lma5 dsttQuaCF3uYqrFOYgKZRm DEkvTNJqQuMhOyMyDCy6UN DhPvTdsNutA6uqIEOsVOhm bYLppk23OKkbv4itHix2kV S0IGPpPOWdgaLwSXUiD0r4 z6UhjI6rPKgjXSU5 MICROSCOPIC DESCRIPTION e8fcnQRsCEGwuQL9BfOnJP (test code = 3371) Sgx9qge7IdxIFcmMMgRRuz kZTiqrHoxr87pFJ7hK41WM 3dYUVrEiR9HZFuxyP3Ufu0 MZKwNHKwjXTiA553r9sad3 knxwMquIG7yUkkJUZlTZTs LPqpJRCbWgOzJURnDc6mkZ VkLiBccGFyfQ== STATEMENT OF ADEQUACY Satisfactory (test code = 2757) Gross assessment was [facility] performed at ([facility], = 2777) Department of Pathology, [address] [place] [address], Technical component was [facility] performed at ([facility], = 2778) Department of Pathology, [address] [place] [id number], Professional component [facility] was performed at ([facility], code = 2779) Department of Pathology, [address] [place], [place] [id number], [facility] 14:38:00Medical Cytology Report Case: [id number] Aut horizing Provider: Floyd Grimaldo MD Collected: 04/25/2021 04:41 PM Ordering Location: [address] Received: 04/26/2021 08:43 AM Pathologist: Raheem Vásquez MD Specimen: Pericardial PERICARDIAL FLUID(CYTOSPINS): - NEGATIVE FOR MALIGNANCY Signing Pathologist Direct Phone Line: [phone] signed by Raheem Vásquez MD on 04/26/2021 at 2:38 [id number] effusion; 1 .1 cm right upper lobe nodule; mediastinal lymphadenopathyPERICARDIAL FLUID Received 30 ml clear, miranda-yellow fluid; prepared 4 cytospins Performed. [facility], Department of Pathology, [address] [place] [id number], [facility], Department of Pathology, [address] [place] [address], [facility], Department of [facility], [address] [place] [address], QFCB-GLUCOSE [id number] 12:58:00 Test Item Value Reference Range Interpretation Comments POC-GLUCOSE METER 261 mg/dL 70-110 H : TESTED A T [facility] 6720 (ELLYN) (test code = FLAVIO Bolden [facility], 1538) [address]: Orientation And Mobility Specialist/Techni ling ID = [id number] for LALITO EPPS CYTOLOGY [id number] 10:01:00 Test Item Value Reference Range Interpretation Comments Cytology (test code = See Separate Report 2629) [facility] [id number] 10:01:00 Test Item Value Reference Range Interpretation Comments CYTOLOGY RESULT POINTER See Separate Report (ELLYN) (test code = 2629) RAD, CHEST, 1 VIEW, NON [id number] 08:54:00Reason for exam:->s/p thoracic surgeryS[facility]LEXSANDER CHOE : 1945 Sex: FFINAL REPORT RAD, CHEST, 1 VIEW, NON DEPT INDICATION: s/p thoracic surgery COMPARISON: Prior day's exam FINDINGS: Portable frontal view of the chest. IMPRESSION: Support Lines: Stable. Lungs and pleura: Increasing central interstitial congestion. Small left effusion. No pneumothorax.Heart and mediastinum: Stable contours. Additional findings: None. Signed: JR Rohini, Jae Kirkland Verified Date/Time: 04/26/2021 08:54:37 Reading Location: [facility] Radiology Reading Room Hemoglobin [id number] 07:26:00 Test Item Value Reference Range Interpretation Comments Hemoglobin A1C (test code = 4548-4) 6.9 % 4.3-6.1 H Lab Interpretation (test code = Abnormal 89118-4) [facility] ValleyHEMOGLOBIN [id number] 07:26:00 Test Item Value Reference Range Interpretation Comments HEMOGLOBIN A1C (BEAKER) (test code = 6.9 % 4.3-6.1 H 368) TSH/Free T4 If [id number] 05:21:00 Test Item Value Reference Range Interpretation Comments TSH (test code = 0.911 See_Comment [Automated 97246-6) message] The system which generated this result transmit sanford reference range : 0.350 - 4.940 uIU/mL. The reference range was not used to interpret this result as normal/abnormal . YEVGENIY (test code = YEVGENIY) Orientation And Mobility Specialist ID - EDASI Lab Interpretation Normal (test code = 47523-3) [facility] ValleyTSH/FREE T4 IF [id number] 05:21:00 Test Item Value Reference Range Interpretation Comments THYROID STIMULATING HORMONE 0.911 uIU/mL 0.350-4.940 (BEAKER) (test code = 772) Orientation And Mobility Specialist ID - EDASICBC W/PLT COUNT & AUTO [id number] 05:05:00 Test Item Value Reference Range Interpretation Comments WHITE BLOOD CELL COUNT (BEAKER) 12.4 K/ L 3.5-10.5 H (test code = 775) RED BLOOD CELL COUNT (BEAKER) 3.99 M/ L 3.93-5.22 (test code = 761) HEMOGLOBIN (BEAKER) (test code = 11.4 GM/DL 11.2-15.7 410) HEMATOCRIT (BEAKER) (test code = 36.2 % 34.1-44.9 411) MEAN CORPUSCULAR VOLUME (BEAKER) 90.7 fL 79.4-94.8 (test code = 753) MEAN CORPUSCULAR HEMOGLOBIN 28.6 pg 25.6-32.2 (BEAKER) (test code = 751) MEAN CORPUSCULAR HEMOGLOBIN CONC 31.5 GM/DL 32.2-35.5 L (BEAKER) (test code = 752) RED CELL DISTRIBUTION WIDTH 14.0 % 11.7-14.4 (BEAKER) (test code = 412) PLATELET COUNT (BEAKER) (test 267 K/CU MM 150-450 code = 756) MEAN PLATELET VOLUME (BEAKER) 9.8 fL 9.4-12.3 (test code = 754) NUCLEATED RED BLOOD CELLS 0 /100 WBC 0-0 (BEAKER) (test code = 413) NEUTROPHILS RELATIVE PERCENT 89 % (BEAKER) (test code = 429) LYMPHOCYTES RELATIVE PERCENT 5 % (BEAKER) (test code = 430) MONOCYTES RELATIVE PERCENT 5 % (BEAKER) (test code = 431) EOSINOPHILS RELATIVE PERCENT 0 % (BEAKER) (test code = 432) BASOPHILS RELATIVE PERCENT 1 % (BEAKER) (test code = 437) NEUTROPHILS ABSOLUTE COUNT 11.06 K/ L 1.56-6.13 H (BEAKER) (test code = 670) LYMPHOCYTES ABSOLUTE COUNT 0.57 K/ L 1.18-3.74 L (BEAKER) (test code = 414) MONOCYTES ABSOLUTE COUNT (BEAKER) 0.64 K/ L 0.24-0.36 H (test code = 415) EOSINOPHILS ABSOLUTE COUNT 0.01 K/ L 0.04-0.36 L (BEAKER) (test code = 416) BASOPHILS ABSOLUTE COUNT (BEAKER) 0.06 K/ L 0.01-0.08 (test code = 417) IMMATURE GRANULOCYTES-RELATIVE 1 % 0-1 PERCENT (BEAKER) (test code = 2801) Hepatic function [id number] 05:04:00 Test Item Value Reference Range Interpretation Comments Protein, Total (test 6.4 See_Comment [Autom ated code = 2885-2) message] The system which generated this result transmit sanford reference range : 6.0 - 8.3 gm/dL . The reference range was not u sed to interpret th is result as normal/abnormal . Albumin (test code = 3.5 g/dL 3.5-5 16985-0) Total Bilirubin (test 0.5 mg/dL 0.2-1.2 code = 1974-2) Bilirubin, Direct 0.3 mg/dL 0.1-0.5 (test code = 1967-7) Alkaline Phosphatase 45 U/L 40-150 (test code = 6768-6) AST (test code = 26 U/L 5-34 1920-8) ALT (test code = 21 U/L 6-55 1742-6) YEVGENIY (test code = YEVGENIY) Orientation And Mobility Specialist ID - PIAYA L Lab Interpretation Normal (test code = 93313-9) [facility] ValleyB-type Natriuretic Factor (BNP)2021-04-26 05:04:00 Test Item Value Reference Range Interpretation Comments BNP (test code = 17122-7) 77 pg/mL 0-100 YEVGENIY (test code = YEVGENIY) Orientation And Mobility Specialist ID - MOLLY L Lab Interpretation (test Normal code = 23036-1) [facility] ValleyHigh Sensitivity Troponin I ([facility]/Dash Only) 2021-04-26 05:04:00 Test Item Value Reference Range Interpretation Comments Troponin I HS 18 pg/ml See_Comment H [Automated (test code = message] The 60424-3) system which generated this result transmitted reference range : <=17. The reference range was not used to interpret this result as normal/abnormal . YEVGENIY (test code = Orientation And Mobility Specialist ID - YEVGENIY) [facility] medicNICKY M[employer]ova STAT High Sensitivity Troponin-I results should be used in conjunction with other diagnostic information such as ECG, clinical observations and information, and patient symptoms to aid in the diagnosis of NM. Lab Interpretation Abnormal (test code = 61666-8) [facility] ValleyHIGH SENSITIVITY TROPONIN [id number] 05:04:00 Test Item Value Reference Range Interpretation Comments HIGH SENSITIVITY 18 pg/ml See_Comment H [Automated message] TROPONIN I (test code = The system which 1075257) generated this result transmitted ref erence range: <=17. Th e reference range was not used to int erpret this result as normal/abnormal . Orientation And Mobility Specialist ID - YUMIKOAYA Hybrenthe GIG TENDER STAT High Sensitivity Troponin-I results should be used in conjunction with other diagnostic information such as ECG, clinical observations and information, and patient symptoms to aid in the diagnosis of NM.B-TYPE NATRIURETIC FACTOR (BNP)2021-04-26 05:04:00 Test Item Value Reference Range Interpretation Comments B-TYPE NATRIURETIC PEPTIDE (BEAKER) 77 pg/mL 0-100 (test code = 700) Orientation And Mobility Specialist ID - MOLLY LBASIC METABOLIC [id number] 05:04:00 Test Item Value Reference Range Interpretation Comments SODIUM (BEAKER) 136 meq/L 136-145 (test code = 381) POTASSIUM (BEAKER) 4.3 meq/L 3.5-5.1 (test code = 379) CHLORIDE (BEAKER) 102 meq/L 98-107 (test code = 382) CO2 (BEAKER) (test 25 meq/L 22-29 code = 355) BLOOD UREA NITROGEN 16 mg/dL 7-21 (BEAKER) (test code = 354) CREATININE (BEAKER) 1.11 mg/dL 0.57-1.25 (test code = 358) GLUCOSE RANDOM 221 mg/dL 70-105 H (BEAKER) (test code = 652) CALCIUM (BEAKER) 9.0 mg/dL 8.4-10.2 (test code = 697) EGFR (BEAKER) (test 48 mL/min/1.73 ESTIMA SANFORD GFR IS code = 1092) sq m NOT ACCURATE CREATININE CLEARANCE IN PREDICTING GLOMERULAR FILTRATION RATE . ESTIMATED GFR I S NOT APPLICABLE FOR DIALYSIS PATIEN TS. Orientation And Mobility Specialist ID - PIAYA [id number] 05:04:00 Test Item Value Reference Range Interpretation Comments MAGNESIUM (BEAKER) (test code = 1.9 mg/dL 1.6-2.6 627) Orientation And Mobility Specialist ID - PIAYA LHEPATIC FUNCTION [id number] 05:04:00 Test Item Value Reference Range Interpretation Comments TOTAL PROTEIN (BEAKER) (test code = 6.4 gm/dL 6.0-8.3 770) ALBUMIN (BEAKER) (test code = 1145) 3.5 g/dL 3.5-5.0 BILIRUBIN TOTAL (BEAKER) (test code 0.5 mg/dL 0.2-1.2 = 377) BILIRUBIN DIRECT (BEAKER) (test 0.3 mg/dL 0.1-0.5 code = 706) ALKALINE PHOSPHATASE (BEAKER) (test 45 U/L 40-150 code = 346) AST (SGOT) (BEAKER) (test code = 26 U/L 5-34 353) ALT (SGPT) (BEAKER) (test code = 21 U/L 6-55 347) Orientation And Mobility Specialist ID - MOLLY LProthrombin time/[id number] 04:55:00 Test Item Value Reference Interpretation Comments Range Protime (test code = 14.8 See_Comment H [Autom ated 5902-2) message] The system which generated this result transmitted reference range : 11.9 - 14.2 seconds. The reference range was not used to interpret this result as normal/abnormal . INR (test code = 1.18 See_Comment [Automated 6301-6) message] The system which generated this result transmitted reference range : <=5.90. The reference range was not used to interpret this result as normal/abnormal . YEVGENIY (test code = RECOMMENDED YEVGENIY) COUMADIN/WARFARIN INR THERAPY RANGESSTANDARD DOSE: 2.0 - 3.0 Includes: PROPHYLAXIS for venous thrombosis, systemic embolization; TREATMENT for venous thrombosis and/or pulmonary embolus.HIGH RISK: Target INR is 2.5-3.5 for patients with mechanical heart valves. Lab Interpretation Abnormal (test code = 56499-6) [facility] ValleyPROTHROMBIN TIME/[id number] 04:55:00 Test Item Value Reference Range Interpretation Comments PROTIME (BEAKER) 14.8 seconds 11.9-14.2 H (test code = 759) INR (BEAKER) (test 1.18 See_Comment [Automat ed message] code = 370) The system [employer] generated this result transmitted ref erence range: <=5.90. The reference range was not used to int erpret this result as normal/abnormal . RECOMMENDED COUMADIN/WARFARIN INR THERAPY RANGESSTANDARD DOSE: 2.0 - 3.0 Includes: PROPHYLAXIS forvenous thrombosis, systemic embolization; TREATMENT for venous thrombosis and/or pulmonary embolus.HIGH RISK: Target INR is 2.5-3.5 for patients with mechanical heart valves.BLOOD GAS, [id number] 04:45:00 Test Item Value Reference Range Interpretation Comments PH ARTERIAL (BEAKER) (test code = 7.41 7.35-7.45 383) PCO2 ARTERIAL (BEAKER) (test code 46 mm Hg 35-45 H = 384) PO2 ARTERIAL (BEAKER) (test code = 112 mm Hg 80-90 H 385) O2 SATURATION ARTERIAL (BEAKER) 98.1 % 96.0-97.0 H (test code = 386) HCO3 ARTERIAL (BEAKER) (test code 28 mmol/L 21-29 = 388) BASE EXCESS ARTERIAL (BEAKER) 3.2 mmol/L -2.0-3.0 H (test code = 387) PATIENT TEMPERATURE (BEAKER) (test 37.0 code = 1818) FIO2 (BEAKER) (test code = 1819) 32.0 RAD, CHEST, 1 VIEW, NON [id number] 04:32:00Reason for exam:->post thoracic surgery, chest tubes in placeShould [facility] : 1945 Sex: FFINAL REPORT RAD, CHEST, 1 VIEW, NON DEPT INDICATION: post thoracic surgery, chest tubes in place COMPARISON: Unavailable FINDINGS: Portable frontal view of the chest. IMPRESSION: Support Lines: Two right-sided chest tubes. Lungs and pleura: Low lung volumes. Prominence of the central pulmonary vasculature with coarse interstitial airspace opacities bilaterally favored represent pulmonary vascular congestion and interstitial pulmonary edema. Bibasilar heterogeneous bandlike airspace opacities likely represent atelectasis however superimposed infection should be excluded clinically. Small left pleural effusion. No pneumothorax.Heart and mediastinum: Enlarged cardiomediastinal silhouette is possibly exaggerated by technique. Atherosclerotic calcifications of thoracic aorta. Additional findings: No acute osseous abnormality. Signed: Shaeffer, Adina MDReport Verified Date/Time: 04/26/2021 04:32:08 [id number] 19:11:00 Test Item Value Reference Range Interpretation Comments Phosphorus (test code = 4.5 mg/dL 2.3-4.7 2777-1) YEVGENIY (test code = YEVGENIY) Orientation And Mobility Specialist ID - DB Lab Interpretation (test Normal code = 26048-5) [facility] ValleyPHOSPHORUS2021-07-01 19:11:00 Test Item Value Reference Range Interpretation Comments PHOSPHORUS (BEAKER) (test code = 4.5 mg/dL 2.3-4.7 604) Orientation And Mobility Specialist ID - [id number] 19:11:00 Test Item Value Reference Range Interpretation Comments MAGNESIUM (BEAKER) (test code = 2.3 mg/dL 1.6-2.6 627) Orientation And Mobility Specialist ID - DBBASIC METABOLIC [id number] 19:11:00 Test Item Value Reference Range Interpretation Comments SODIUM (BEAKER) 137 meq/L 136-145 (test code = 381) POTASSIUM (BEAKER) 4.7 meq/L 3.5-5.1 (test code = 379) CHLORIDE (BEAKER) 103 meq/L 98-107 (test code = 382) CO2 (BEAKER) (test 22 meq/L 22-29 code = 355) BLOOD UREA NITROGEN 17 mg/dL 7-21 (BEAKER) (test code = 354) CREATININE (BEAKER) 1.26 mg/dL 0.57-1.25 H (test code = 358) GLUCOSE RANDOM 228 mg/dL 70-105 H (BEAKER) (test code = 652) CALCIUM (BEAKER) 9.2 mg/dL 8.4-10.2 (test code = 697) EGFR (BEAKER) (test 41 mL/min/1.73 ESTIMA SANFORD GFR IS code = 1092) sq m NOT ACCURATE CREATININE CLEARANCE IN PREDICTING GLOMERULAR FILTRATION RATE . ESTIMATED GFR I S NOT APPLICABLE FOR DIALYSIS PATIEN TS. Orientation And Mobility Specialist ID - DBPT/[id number] 18:52:00 Test Item Value Reference Interpretation Comments Range Protime (test code = 14.8 See_Comment H [Autom ated 5902-2) message] The system which generated this result transmitted reference range : 11.9 - 14.2 seconds. The reference range was not used to interpret this result as normal/abnormal . INR (test code = 1.18 See_Comment [Automated 8771-6) message] The system which generated this result transmitted reference range : <=5.90. The reference range was not used to interpret this result as normal/abnormal . PTT (test code = 27.6 See_Comment [Automated 88187-6) message] The system which generated this result transmitted reference range : 22.5 - 36.0 seconds. The reference range was not used to interpret this result as normal/abnormal . YEVGENIY (test code = RECOMMENDED YEVGENIY) COUMADIN/WARFARIN INR THERAPY RANGESSTANDARD DOSE: 2.0 - 3.0 Includes: PROPHYLAXIS for venous thrombosis, systemic embolization; TREATMENT for venous thrombosis and/or pulmonary embolus.HIGH RISK: Target INR is 2.5-3.5 for patients with mechanical heart valves. Lab Interpretation Abnormal (test code = 63888-5) [facility] ValleyPT/[id number] 18:52:00 Test Item Value Reference Range Interpretation Comments PROTIME (BEAKER) (test 14.8 seconds 11.9-14.2 H code = 759) INR (BEAKER) (test 1.18 See_Comment [Automat ed code = 370) message] The sy stem which generated this result transmitted reference range : <=5.90. The reference range was not used to interpret this result as normal/abnormal . PARTIAL THROMBOPLASTIN 27.6 seconds 22.5-36.0 TIME (BEAKER) (test code = 760) RECOMMENDED COUMADIN/WARFARIN INR THERAPY RANGESSTANDARD DOSE: 2.0 - 3.0 Includes: PROPHYLAXIS forvenous thrombosis, systemic embolization; TREATMENT for venous thrombosis and/or pulmonary embolus.HIGH RISK: Target INR is 2.5-3.5 for patients with mechanical heart valves.CBC (Hemogram only)2021-04-25 18:42:00 Test Item Value Reference Range Interpretation Comments WBC (test code = 6690-2) 13.0 See_Comment H [A utomated message] The system [employer] h generated this result transmitted ref erence range: 3.5 - 10 .5 K/L. The refe rence range was not u sed to interpret this result as normal/abnor mal. RBC (test code = 789-8) 3.99 See_Comment [Au tomated message] The system Cree generated this result transmitted ref erence range: 3.93 - 5 .22 M/L. The refe rence range was not u sed to interpret this result as normal/abnor mal. MCHC (test code = 786-4) 31.1 See_Comment L [A utomated message] The system Cree generated this result transmitted ref erence range: 32.2 - 3 5.5 GM/DL. The refe rence range was not u sed to interpret this result as normal/abnor mal. Hematocrit (test code = 36.6 % 34.1-44.9 4544-3) MCV (test code = 787-2) 91.7 fL 79.4-94.8 MCH (test code = 785-6) 28.6 pg 25.6-32.2 RDW (test code = 788-0) 13.9 % 11.7-14.4 Platelets (test code = 296 See_Comment [Aut omated message] 777-3) The system Cree generated this result transmitted ref erence range: 150 - 45 0 K/CU MM. The referen ce range was not u sed to interpret this result as normal/abnor mal. MPV (test code = 9.8 fL 9.4-12.3 04463-8) nRBC (test code = 413) 0 See_Comment [Aut omated message] The system Cree generated this result transmitted ref erence range: 0 - 0 /1 00 WBC. The refere nce range was not u sed to interpret this result as normal/abnor mal. Lab Interpretation (test Abnormal code = 04976-7) [facility] (HEMOGRAM ONLY)2021-04-25 18:42:00 Test Item Value Reference Range Interpretation Comments WHITE BLOOD CELL COUNT (BEAKER) 13.0 K/ L 3.5-10.5 H (test code = 775) RED BLOOD CELL COUNT (BEAKER) 3.99 M/ L 3.93-5.22 (test code = 761) HEMOGLOBIN (BEAKER) (test code = 11.4 GM/DL 11.2-15.7 410) HEMATOCRIT (BEAKER) (test code = 36.6 % 34.1-44.9 411) MEAN CORPUSCULAR VOLUME (BEAKER) 91.7 fL 79.4-94.8 (test code = 753) MEAN CORPUSCULAR HEMOGLOBIN 28.6 pg 25.6-32.2 (BEAKER) (test code = 751) MEAN CORPUSCULAR HEMOGLOBIN CONC 31.1 GM/DL 32.2-35.5 L (BEAKER) (test code = 752) RED CELL DISTRIBUTION WIDTH 13.9 % 11.7-14.4 (BEAKER) (test code = 412) PLATELET COUNT (BEAKER) (test 296 K/CU MM 150-450 code = 756) MEAN PLATELET VOLUME (BEAKER) 9.8 fL 9.4-12.3 (test code = 754) NUCLEATED RED BLOOD CELLS 0 /100 WBC 0-0 (BEAKER) (test code = 413) Prepare [id number] 18:37:00 Test Item Value Reference Range Interpretation Comments CROSSMATCH (test code = COMPATIBLE 2264) Unit ABO (test code = B Pos 8744722) UNIT NUMBER (test code = [id number] 934-0) Status (test code = RETURNED FROM ISSUE 4722833) Blood Bank Product (test RED BLOOD CELLS code = 2263) PRODUCT CODE (test code = L6920B87 933-2) [facility] ValleyCalcium, [id number] 18:29:00 Test Item Value Reference Range Interpretation Comments Calcium, Ion (test code = 1994-3) 1.21 mmol/L 1.12-1.27 pH, Blood (test code = 19071-7) 7.31 [facility] ValleyCALCIUM, [id number] 18:29:00 Test Item Value Reference Range Interpretation Comments CALCIUM IONIZED (BEAKER) (test 1.21 mmol/L 1.12-1.27 code = 698) PH, BLOOD (BEAKER) (test code = 7.31 1810) BLOOD GAS, [id number] 18:29:00 Test Item Value Reference Range Interpretation Comments PH ARTERIAL (BEAKER) (test code = 7.31 7.35-7.45 L 383) PCO2 ARTERIAL (BEAKER) (test code 54 mm Hg 35-45 H = 384) PO2 ARTERIAL (BEAKER) (test code 83 mm Hg 80-90 = 385) O2 SATURATION ARTERIAL (BEAKER) 95.3 % 96.0-97.0 L (test code = 386) HCO3 ARTERIAL (BEAKER) (test code 27 mmol/L 21-29 = 388) BASE EXCESS ARTERIAL (BEAKER) -0.7 mmol/L -2.0-3.0 (test code = 387) PATIENT TEMPERATURE (BEAKER) 36.5 (test code = 1818) FIO2 (BEAKER) (test code = 1819) 80.0 ABORH, [id number] 18:12:00 Test Item Value Reference Range Interpretation Comments ABO Grouping (test code = 883-9) B Rh Factor (test code = 33655-0) [facility] [id number] 14:10:00Interface, External Ris In - 04/25/2021 2:10 PM CDTVentricular Rate 82 BPMAtrial Rate 82 BPMP-R Interval 184 msQRS Duration 90 msQ-T Interval 384 msQTC Calculation(Bazett) 448 msP [place] 27 degreesR [place] 1 degreesT [place] 45 degreesNormal sinus rhythmNormal ECGNo previous ECGs availableConfirmed by MD Werner Roberto ([id number]) on 04/25/2021 2:09:59 [facility] [id number] 12:52:00 Test Item Value Reference Range Interpretation Comments POC-GLUCOSE METER 149 mg/dL 70-110 H [facility] (BEAKER) (test code = [place], 1538) [address]: Orientation And Mobility Specialist/Techni ling ID = [id number] for Tr inh (pca2), Liz HEMOGLOBIN [id number] 11:33:00 Test Item Value Reference Range Interpretation Comments HEMOGLOBIN A1C (BEAKER) (test code = 6.9 % 4.3-6.1 H 368) Type and screen, [id number] 10:20:00 Test Item Value Reference Range Interpretation Comments ABO/RH AUTOMATED (BEAKER) (test B POSITIVE code = 2260) Ab Scrn (test code = 890-4) NEGATIVE [facility] ValleyPT/[id number] 10:03:00 Test Item Value Reference Range Interpretation Comments PROTIME (BEAKER) (test 14.1 seconds 11.9-14.2 code = 759) INR (BEAKER) (test 1.11 See_Comment [Automat ed code = 370) message] The sy stem which generated this result transmitted reference range : <=5.90. The reference range was not used to interpret this result as normal/abnormal . PARTIAL THROMBOPLASTIN 27.0 seconds 22.5-36.0 TIME (BEAKER) (test code = 760) RECOMMENDED COUMADIN/WARFARIN INR THERAPY RANGESSTANDARD DOSE: 2.0 - 3.0 Includes: PROPHYLAXIS forvenous thrombosis, systemic embolization; TREATMENT for venous thrombosis and/or pulmonary embolus.HIGH RISK: Target INR is 2.5-3.5 for patients with mechanical heart valves.Lipid [id number] 09:52:00 Test Item Value Reference Range Interpretation Comments Triglycerides (test 347 mg/dL code = 2571-8) Cholesterol (test code 158 mg/dL = 2093-3) HDL (test code = 31 mg/dL 5-9) LDL Calculated (test 58 mg/dL code = 68681-6) YEVGENIY (test code = YEVGENIY) Triglyceride Reference Range: Low Risk <150 Borderline 150-199 High Risk 200-499 Very High Risk >=500 Cholesterol Reference Range: Low Risk <200 Borderline 200-239 High Risk >240 HDL Cholesterol Reference Range: Low Risk >=60 High Risk <40 LDL Cholesterol Reference Range: Optimal <100 Near Optimal 100-129 Borderline 130-159 High 160-189 Very High >=190 Orientation And Mobility Specialist ID - PIAYA L [facility] ValleyBASIC METABOLIC [id number] 09:52:00 Test Item Value Reference Range Interpretation Comments SODIUM (BEAKER) 139 meq/L 136-145 (test code = 381) POTASSIUM (BEAKER) 4.4 meq/L 3.5-5.1 (test code = 379) CHLORIDE (BEAKER) 104 meq/L 98-107 (test code = 382) CO2 (BEAKER) (test 26 meq/L 22-29 code = 355) BLOOD UREA NITROGEN 17 mg/dL 7-21 (BEAKER) (test code = 354) CREATININE (BEAKER) 1.01 mg/dL 0.57-1.25 (test code = 358) GLUCOSE RANDOM 184 mg/dL 70-105 H (BEAKER) (test code = 652) CALCIUM (BEAKER) 9.6 mg/dL 8.4-10.2 (test code = 697) EGFR (BEAKER) (test 53 mL/min/1.73 ESTIMA SANFORD GFR IS code = 1092) sq m NOT ACCURATE CREATININE CLEARANCE IN PREDICTING GLOMERULAR FILTRATION RATE . ESTIMATED GFR I S NOT APPLICABLE FOR DIALYSIS PATIEN TS. Orientation And Mobility Specialist ID - PIAYA LLIPID [id number] 09:52:00 Test Item Value Reference Range Interpretation Comments TRIGLYCERIDES (BEAKER) (test code = 347 mg/dL 540) CHOLESTEROL (BEAKER) (test code = 158 mg/dL 631) HDL CHOLESTEROL (BEAKER) (test code 31 mg/dL = 976) LDL CHOLESTEROL CALCULATED (BEAKER) 58 mg/dL (test code = 633) Triglyceride Reference Range: Low Risk <150 Borderline 150-199 High Risk 200-499 Very High Risk >=500Cholesterol Reference Range: Low Risk <200 Borderline 200-239 High Risk >240HDL Cholesterol Reference Range: Low Risk >=60 High Risk <40LDL Cholesterol Reference Range: Optimal <100 Near Optimal 100-129 Borderline 130-159 High 160-189 Very High >=190 Orientation And Mobility Specialist ID - PIAYALCBC W/PLT COUNT & AUTO [id number] 09:36:00 Test Item Value Reference Range Interpretation Comments WHITE BLOOD CELL COUNT (BEAKER) 7.4 K/ L 3.5-10.5 (test code = 775) RED BLOOD CELL COUNT (BEAKER) 3.90 M/ L 3.93-5.22 L (test code = 761) HEMOGLOBIN (BEAKER) (test code = 11.2 GM/DL 11.2-15.7 410) HEMATOCRIT (BEAKER) (test code = 35.1 % 34.1-44.9 411) MEAN CORPUSCULAR VOLUME (BEAKER) 90.0 fL 79.4-94.8 (test code = 753) MEAN CORPUSCULAR HEMOGLOBIN 28.7 pg 25.6-32.2 (BEAKER) (test code = 751) MEAN CORPUSCULAR HEMOGLOBIN CONC 31.9 GM/DL 32.2-35.5 L (BEAKER) (test code = 752) RED CELL DISTRIBUTION WIDTH 13.9 % 11.7-14.4 (BEAKER) (test code = 412) PLATELET COUNT (BEAKER) (test 284 K/CU MM 150-450 code = 756) MEAN PLATELET VOLUME (BEAKER) 9.9 fL 9.4-12.3 (test code = 754) NUCLEATED RED BLOOD CELLS 0 /100 WBC 0-0 (BEAKER) (test code = 413) NEUTROPHILS RELATIVE PERCENT 72 % (BEAKER) (test code = 429) LYMPHOCYTES RELATIVE PERCENT 15 % (BEAKER) (test code = 430) MONOCYTES RELATIVE PERCENT 6 % (BEAKER) (test code = 431) EOSINOPHILS RELATIVE PERCENT 4 % (BEAKER) (test code = 432) BASOPHILS RELATIVE PERCENT 1 % (BEAKER) (test code = 437) NEUTROPHILS ABSOLUTE COUNT 5.31 K/ L 1.56-6.13 (BEAKER) (test code = 670) LYMPHOCYTES ABSOLUTE COUNT 1.13 K/ L 1.18-3.74 L (BEAKER) (test code = 414) MONOCYTES ABSOLUTE COUNT (BEAKER) 0.43 K/ L 0.24-0.36 H (test code = 415) EOSINOPHILS ABSOLUTE COUNT 0.28 K/ L 0.04-0.36 (BEAKER) (test code = 416) BASOPHILS ABSOLUTE COUNT (BEAKER) 0.09 K/ L 0.01-0.08 H (test code = 417) IMMATURE GRANULOCYTES-RELATIVE 2 % 0-1 H PERCENT (BEAKER) (test code = 2801) POCT-GLUCOSE [id number] 07:42:00 Test Item Value Reference Range Interpretation Comments POC-GLUCOSE METER 190 mg/dL 70-110 H : TESTED A T [facility] 6720 (BEAKER) (test code = FLAVIO MCCANN [place], 1538) [address]: Orientation And Mobility Specialist/Techni ling ID = [id number] for Tr estephanie (pca2)Liz [id number] 00:00:00Ordered by an unspecified provider.[facility]MP[facility]21[facility] 05:11:00 Test Item Value Reference Range Interpretation Comments Sodium (test code = 138 mmol/l 136-146 NA) Potassium (test 4.3 mmol/l 3.5-5.1 code = K) Chloride (test code 105 mmol/l 98-107 = CL) Calcium (test code 9.7 mg/dl 8.5-10.1 = CALC) CO2 (test code = 29 mmol/l 21-32 CO2) Glucose (test code 168 mg/dl 74-106 H = GLU) BUN (test code = 16.0 mg/dl 7.0-18.0 BUN) Creatinine (test 1.0 mg/dl 0.5-1.3 code = CREA) T Protein (test 6.7 gm/dl 6.4-8.2 code = TP) Albumin (test code 3.1 gm/dl 3.4-5.0 L = ALB) A/G Ratio (test 0.9 % 1.1-2.2 L code = AGRAT) AST (SGOT) (test 29 U/L 15-37 code = AST) ALT (SGPT) (test 34 U/L 13-61 code = ALT) Alkaline Phos (test 50 U/L 45-117 code = ALKP) Total Bilirubin 0.4 mg/dl 0.2-1.0 (test code = TBIL) Globulin (test code 3.6 gm/dl 2.3-3.5 H = GLOBU) Calcium, Corrected 10.4 mg/dl 8.4-10.2 H Various f ormulas exist (test code = for corrected s tariq CALCCORR) calcium results , each yielding differ ent values. This corrected resul t was based on the fo rmula: Corrected Calci um = SerumCalcium + [0.8 * ( 4 - SerumAlbu min)] EGFR if >60 Prydeinig (test code mL/min/1.73m\\ = EGFRAA) S\\2 EGFR if Non- 57 Estimate d Glomerular Prydeinig (test code mL/min/1.73m\\ Filtrat ion Rate (eGFR) = EGFRNA) S\\2 Reference Inter vals Decision Points for 18 years and older and average body ma ss: >= 60 Does not exc lude kidney disease. 30 - 59 Suggests modera te chronic kidney disease and indicat es the need for furthe r investigation including asses sment of proteinuria and cardiovascular factors. < 30 Usually in dicates a need for refe rral for assessment and management of c hronic kidney failure. CBC WITH AUTO [id number] 05:00:00 Test Item Value Reference Range Interpretation Comments WBC (test code = 8.07 10\\S\\3/ul 4.80-10.80 WBC) RBC (test code = 3.92 10\\S\\6/ul 4.20-5.40 L RBC) Hemoglobin (test 11.1 gm/dl 12.0-14.0 L code = HGB) Hematocrit (test 35.4 % 37.0-47.0 L code = HCT) MCV (test code = 90.3 fL 81.0-99.0 MCV) MCH (test code = 28.3 pg 27.0-31.0 MCH) MCHC (test code = 31.4 gm/dl 33.0-37.0 L MCHC) RDW (test code = 13.8 % 11.5-14.5 RDWVC) Platelet (test code 291 10\\S\\3/ul 130-400 = PLT) MPV (test code = 9.9 fL 7.4-10.4 A "NOT MEASUR ED" MPV) RESULTS ARE DIS PLAYED WHEN THE INSTRU MENT HAS A SUPPRESSE D OR UNREPORTABLE RE SULT. THIS WILL MOST OFTEN HAPPEN WITH THE MPV WHEN THERE IS A N ABNORMAL PLATEL ET DISTRIBUTION DU E TO A CRITICAL LOW VA LUE OR PLATELET CLUMPI NG. THE RDW MAY BE SUPPRESSED IF T HERE ARE MULTIPLE PE AKS PRESENT ON THE RBC HISTOGRAM. IN THIS CASE, A MANUAL REVIEW OF THE SLIDE WI LL BE PERFORMED, AND RBC MORPHOLOGY WILL BE NOTED ON THE RE PORT. NE% (test code = 68.1 % 42.0-75.0 NE) LY% (test code = 17.3 % 13.0-42.0 LY) MO% (test code = 6.7 % 4.0-14.0 MO) EO% (test code = 4.7 % 1.0-5.0 EO) BA% (test code = 1.5 % 0.0-3.0 BA) IG% (test code = 1.7 % 0.0-0.4 H IG%) [id number] 05:13:00 Test Item Value Reference Range Interpretation Comments Sodium (test code = 138 mmol/l 136-146 NA) Potassium (test 3.8 mmol/l 3.5-5.1 code = K) Chloride (test code 105 mmol/l 98-107 = CL) Calcium (test code 9.6 mg/dl 8.5-10.1 = CALC) CO2 (test code = 30 mmol/l 21-32 CO2) Glucose (test code 164 mg/dl 74-106 H = GLU) BUN (test code = 16.0 mg/dl 7.0-18.0 BUN) Creatinine (test 1.0 mg/dl 0.5-1.3 code = CREA) T Protein (test 6.6 gm/dl 6.4-8.2 code = TP) Albumin (test code 3.2 gm/dl 3.4-5.0 L = ALB) A/G Ratio (test 0.9 % 1.1-2.2 L code = AGRAT) AST (SGOT) (test 26 U/L 15-37 code = AST) ALT (SGPT) (test 25 U/L 13-61 code = ALT) Alkaline Phos (test 47 U/L 45-117 code = ALKP) Total Bilirubin 0.4 mg/dl 0.2-1.0 (test code = TBIL) Globulin (test code 3.4 gm/dl 2.3-3.5 = GLOBU) Calcium, Corrected 10.2 mg/dl 8.4-10.2 Various f ormulas exist (test code = for corrected s tariq CALCCORR) calcium results , each yielding differ ent values. This corrected resul t was based on the fo rmula: Corrected Calci um = SerumCalcium + [0.8 * ( 4 - SerumAlbu min)] EGFR if >60 Prydeinig (test code mL/min/1.73m\\ = EGFRAA) S\\2 EGFR if Non- 57 Estimate d Glomerular Prydeinig (test code mL/min/1.73m\\ Filtrat ion Rate (eGFR) = EGFRNA) S\\2 Reference Inter vals Decision Points for 18 years and older and average body ma ss: >= 60 Does not exc lude kidney disease. 30 - 59 Suggests modera te chronic kidney disease and indicat es the need for furthe r investigation including asses sment of proteinuria and cardiovascular factors. < 30 Usually in dicates a need for refe rral for assessment and management of c hronic kidney failure. CBC WITH AUTO [id number] 05:06:00 Test Item Value Reference Range Interpretation Comments WBC (test code = 8.41 10\\S\\3/ul 4.80-10.80 WBC) RBC (test code = 3.84 10\\S\\6/ul 4.20-5.40 L RBC) Hemoglobin (test 10.8 gm/dl 12.0-14.0 L code = HGB) Hematocrit (test 34.8 % 37.0-47.0 L code = HCT) MCV (test code = 90.6 fL 81.0-99.0 MCV) MCH (test code = 28.1 pg 27.0-31.0 MCH) MCHC (test code = 31.0 gm/dl 33.0-37.0 L MCHC) RDW (test code = 13.9 % 11.5-14.5 RDWVC) Platelet (test code 277 10\\S\\3/ul 130-400 = PLT) MPV (test code = 9.9 fL 7.4-10.4 A "NOT MEASUR ED" MPV) RESULTS ARE DIS PLAYED WHEN THE INSTRU MENT HAS A SUPPRESSE D OR UNREPORTABLE RE SULT. THIS WILL MOST OFTEN HAPPEN WITH THE MPV WHEN THERE IS A N ABNORMAL PLATEL ET DISTRIBUTION DU E TO A CRITICAL LOW VA LUE OR PLATELET CLUMPI NG. THE RDW MAY BE SUPPRESSED IF T HERE ARE MULTIPLE PE AKS PRESENT ON THE RBC HISTOGRAM. IN THIS CASE, A MANUAL REVIEW OF THE SLIDE WI LL BE PERFORMED, AND RBC MORPHOLOGY WILL BE NOTED ON THE RE PORT. NE% (test code = 69.9 % 42.0-75.0 NE) LY% (test code = 16.3 % 13.0-42.0 LY) MO% (test code = 7.0 % 4.0-14.0 MO) EO% (test code = 4.0 % 1.0-5.0 EO) BA% (test code = 1.3 % 0.0-3.0 BA) IG% (test code = 1.5 % 0.0-0.4 H IG%) CT CHEST W/[id number] 13:35:49 [facility] ([facility]/)Name: ALEXSANDER CHOE : 1945 Sex: FProcedure: CT CHEST W/CONTRASTOrder Date: 04/22/2021 10:27 AMOrdering Provider: MALIK Chery Indication: [id number]: Lung massComparison: Chest x-ray April 20, 2021Technique: Using a multislice scanner, sequential axial imaging was obtained inthe thorax from the level of the thoracic inlet through the lung bases. The examwas obtained following the administration of IV contrast. 2D sagittal andcoronal reconstructed images were obtained. This exam was performed according [facility] departmental dose-optimization program which includes automated exposurecontrol, adjustment of the mA and/or kV according to patient size and/or use ofiterative reconstruction techniques.FINDINGS:3.5 cm hypodense lesion in the left lobe of the thyroid gland.Cardiac size is normal.There is a small alicia cardial effusion.Thoracic aorta is of normal diameter. There is no evidence of aortic dissectionor aneurysm.The pulmonary arteries enhance normally. No evidence of central pulmonaryartery embolism.There is no supraclavicular or axillary lymphadenopathy.There is lymphadenopathy identified in the mediastinum, subcarinal region, andright hilum.There is a solid nodule in the anterior segment of the right upper lobeinferiorly measuring 1.1 cm in diameter. This is contiguous with linearatelectasis posteriorly. No other pulmonary nodules.Linear atelectasis in the right middle lobe, lingula, and right lower lobe.There is no alveolar or interstitial infiltrate.There is no consolidation.There are no pleural effusions.No lytic or sclerotic skeletal lesions.No acute fracture.Multilevel degenerative disc disease in the thoracic spine.IMPRESSION1. Mediastinal, right hilar, and subcarinal lymphadenopathy consistent withnodal metastatic disease.2. 1.1 cm solid nodule in the anterior segment of the right upper lobeinferiorly. This is contiguous with linear atelectasis posteriorly. This is notamenable to percutaneous biopsy due to the small size and proximity to themediastinum.3. Small pericardial effusion which could be pathologic considering theadditional findings.4. 3.5 cm hypodense lesion in the left lobe of the thyroid gland. Recommendfurther evaluation with thyroid ultrasound.4. No infiltrates or significant pleural effusions.5. No other significant findings.This final report was electronically signed by Dr Mani Dupree MD 11:30 PMDictated By: MANI DUPREE.Date: 04/22/2021 13:30CULTURE, [id number] 09:18:00Specimen: Urine RandomCollected: 04/20/2021 09:41 Status: Final Last Updated: 04/22/2021 09:18 CULTURE (Final) (Final) Moderate Mixed Body Annamarie Isolated No Pathogens [id number] 05:14:00 Test Item Value Reference Range Interpretation Comments Sodium (test code = 138 mmol/l 136-146 NA) Potassium (test 3.9 mmol/l 3.5-5.1 code = K) Chloride (test code 105 mmol/l 98-107 = CL) Calcium (test code 9.1 mg/dl 8.5-10.1 = CALC) CO2 (test code = 29 mmol/l 21-32 CO2) Glucose (test code 150 mg/dl 74-106 H = GLU) BUN (test code = 17.0 mg/dl 7.0-18.0 BUN) Creatinine (test 1.0 mg/dl 0.5-1.3 code = CREA) T Protein (test 6.7 gm/dl 6.4-8.2 code = TP) Albumin (test code 3.3 gm/dl 3.4-5.0 L = ALB) A/G Ratio (test 1.0 % 1.1-2.2 L code = AGRAT) AST (SGOT) (test 14 U/L 15-37 L code = AST) ALT (SGPT) (test 18 U/L 13-61 code = ALT) Alkaline Phos (test 49 U/L 45-117 code = ALKP) Total Bilirubin 0.4 mg/dl 0.2-1.0 (test code = TBIL) Globulin (test code 3.4 gm/dl 2.3-3.5 = GLOBU) Calcium, Corrected 9.7 mg/dl 8.4-10.2 Various f ormulas exist (test code = for corrected s tariq CALCCORR) calcium results , each yielding differ ent values. This corrected resul t was based on the fo rmula: Corrected Calci um = SerumCalcium + [0.8 * ( 4 - SerumAlbu min)] EGFR if >60 Prydeinig (test code mL/min/1.73m\\ = EGFRAA) S\\2 EGFR if Non- 57 Estimate d Glomerular Prydeinig (test code mL/min/1.73m\\ Filtrat ion Rate (eGFR) = EGFRNA) S\\2 Reference Inter vals Decision Points for 18 years and older and average body ma ss: >= 60 Does not exc lude kidney disease. 30 - 59 Suggests modera te chronic kidney disease and indicat es the need for furthe r investigation including asses sment of proteinuria and cardiovascular factors. < 30 Usually in dicates a need for refe rral for assessment and management of c hronic kidney failure. CBC WITH AUTO [id number] 04:48:00 Test Item Value Reference Range Interpretation Comments WBC (test code = 8.30 10\\S\\3/ul 4.80-10.80 WBC) RBC (test code = 3.81 10\\S\\6/ul 4.20-5.40 L RBC) Hemoglobin (test 10.9 gm/dl 12.0-14.0 L code = HGB) Hematocrit (test 34.2 % 37.0-47.0 L code = HCT) MCV (test code = 89.8 fL 81.0-99.0 MCV) MCH (test code = 28.6 pg 27.0-31.0 MCH) MCHC (test code = 31.9 gm/dl 33.0-37.0 L MCHC) RDW (test code = 13.9 % 11.5-14.5 RDWVC) Platelet (test code 274 10\\S\\3/ul 130-400 = PLT) MPV (test code = 9.9 fL 7.4-10.4 A "NOT MEASUR ED" MPV) RESULTS ARE DIS PLAYED WHEN THE INSTRU MENT HAS A SUPPRESSE D OR UNREPORTABLE RE SULT. THIS WILL MOST OFTEN HAPPEN WITH THE MPV WHEN THERE IS A N ABNORMAL PLATEL ET DISTRIBUTION DU E TO A CRITICAL LOW VA LUE OR PLATELET CLUMPI NG. THE RDW MAY BE SUPPRESSED IF T HERE ARE MULTIPLE PE AKS PRESENT ON THE RBC HISTOGRAM. IN THIS CASE, A MANUAL REVIEW OF THE SLIDE WI LL BE PERFORMED, AND RBC MORPHOLOGY WILL BE NOTED ON THE RE PORT. NE% (test code = 67.0 % 42.0-75.0 NE) LY% (test code = 19.2 % 13.0-42.0 LY) MO% (test code = 6.9 % 4.0-14.0 MO) EO% (test code = 4.0 % 1.0-5.0 EO) BA% (test code = 1.3 % 0.0-3.0 BA) IG% (test code = 1.6 % 0.0-0.4 H IG%) TSH (Ultra Sensitive)2021-04-21 07:21:00 Test Item Value Reference Range Interpretation Comments TSH (test code = TSH) 3.11 mIU/L 0.35-3.74 [id number] 06:26:00 Test Item Value Reference Range Interpretation Comments Sodium (test code = 139 mmol/l 136-146 NA) Potassium (test 4.0 mmol/l 3.5-5.1 code = K) Chloride (test code 106 mmol/l 98-107 = CL) Calcium (test code 9.4 mg/dl 8.5-10.1 = CALC) CO2 (test code = 29 mmol/l 21-32 CO2) Glucose (test code 159 mg/dl 74-106 H = GLU) BUN (test code = 14.0 mg/dl 7.0-18.0 BUN) Creatinine (test 1.2 mg/dl 0.5-1.3 code = CREA) T Protein (test 7.2 gm/dl 6.4-8.2 code = TP) Albumin (test code 3.3 gm/dl 3.4-5.0 L = ALB) A/G Ratio (test 0.8 % 1.1-2.2 L code = AGRAT) AST (SGOT) (test 17 U/L 15-37 code = AST) ALT (SGPT) (test 19 U/L 13-61 code = ALT) Alkaline Phos (test 54 U/L 45-117 code = ALKP) Total Bilirubin 0.3 mg/dl 0.2-1.0 (test code = TBIL) Globulin (test code 3.9 gm/dl 2.3-3.5 H = GLOBU) Calcium, Corrected 10.0 mg/dl 8.4-10.2 Various f ormulas exist (test code = for corrected s tariq CALCCORR) calcium results , each yielding differ ent values. This corrected resul t was based on the fo rmula: Corrected Calci um = SerumCalcium + [0.8 * ( 4 - SerumAlbu min)] EGFR if 56 Prydeinig (test code mL/min/1.73m\\ = EGFRAA) S\\2 EGFR if Non- 46 Estimate d Glomerular Prydeinig (test code mL/min/1.73m\\ Filtrat ion Rate (eGFR) = EGFRNA) S\\2 Reference Inter vals Decision Points for 18 years and older and average body ma ss: >= 60 Does not exc lude kidney disease. 30 - 59 Suggests modera te chronic kidney disease and indicat es the need for furthe r investigation including asses sment of proteinuria and cardiovascular factors. < 30 Usually in dicates a need for refe rral for assessment and management of c hronic kidney failure. CBC WITH AUTO [id number] 06:12:00 Test Item Value Reference Range Interpretation Comments WBC (test code = 8.66 10\\S\\3/ul 4.80-10.80 WBC) RBC (test code = 4.35 10\\S\\6/ul 4.20-5.40 RBC) Hemoglobin (test 12.3 gm/dl 12.0-14.0 code = HGB) Hematocrit (test 39.5 % 37.0-47.0 code = HCT) MCV (test code = 90.8 fL 81.0-99.0 MCV) MCH (test code = 28.3 pg 27.0-31.0 MCH) MCHC (test code = 31.1 gm/dl 33.0-37.0 L MCHC) RDW (test code = 13.8 % 11.5-14.5 RDWVC) Platelet (test code 329 10\\S\\3/ul 130-400 = PLT) MPV (test code = 9.8 fL 7.4-10.4 A "NOT MEASUR ED" MPV) RESULTS ARE DIS PLAYED WHEN THE INSTRU MENT HAS A SUPPRESSE D OR UNREPORTABLE RE SULT. THIS WILL MOST OFTEN HAPPEN WITH THE MPV WHEN THERE IS A N ABNORMAL PLATEL ET DISTRIBUTION DU E TO A CRITICAL LOW VA LUE OR PLATELET CLUMPI NG. THE RDW MAY BE SUPPRESSED IF T HERE ARE MULTIPLE PE AKS PRESENT ON THE RBC HISTOGRAM. IN THIS CASE, A MANUAL REVIEW OF THE SLIDE WI LL BE PERFORMED, AND RBC MORPHOLOGY WILL BE NOTED ON THE RE PORT. NE% (test code = 68.2 % 42.0-75.0 NE) LY% (test code = 19.9 % 13.0-42.0 LY) MO% (test code = 6.0 % 4.0-14.0 MO) EO% (test code = 3.1 % 1.0-5.0 EO) BA% (test code = 1.3 % 0.0-3.0 BA) IG% (test code = 1.5 % 0.0-0.4 H IG%) RESPIRATORY PANEL 2 (IN HOUSE)2021-04-20 14:55:00 Test Item Value Reference Range Interpretation Comments Adenovirus (test code = ADENO) Not Detected Not Detected N COVID-19, Real Time PCR (test Negative code = COVID) Coronarvirus 229 E (test code = Not Detected Not Detected N [id number]) Coronavirus HKU1 (test code = Not Detected Not Detected N CORNHKU) Coronavirus NL63 (test code = Not Detected Not Detected N CORNL63) Coronavirus OC43 (test code = Not Detected Not Detected N CORNOC) Human Metapneumovirus (test code Not Detected Not Detected N = HUMMETA) Human Rhinovirus/Enterovirus Not Detected Not Detected N (test code = RHIENT) Influenza A (test code = FLUAH3) Not Detected Not Detected N Parainfluenza virus 1 (test code Not Detected Not Detected N = PARVIR1) Parainfluenza virus 2 (test code Not Detected Not Detected N = PARVIR2) Parainfluenza virus 3 (test code Not Detected Not Detected N = PARVIR3) Parainfluenza virus 4 (test code Not Detected Not Detected N = PARVIR4) Respiratory Syncytial Virus Not Detected Not Detected N (test code = RSVBF) Bordetella parapertussis (test Not Detected Not Detected N code = BORPARA) Bordetella pertussis (test code Not Detected Not Detected N = BORPERT) Chlamydia pneumoniae (test code Not Detected Not Detected N = CHLPNEU) Mycoplasma pneumoniae (test code Not Detected Not Detected N = MYCOPNEU) Influenza A subtype H1-2009 Not Detected Not Detected N (test code = [id number]) Influenza B (test code = INFLUB) Not Detected Not Detected N XR ABDOMEN 1 VIEW (KUB)2021-04-20 12:41:29 [facility] ([facility]/)Name: ALEXSANDER CHOE : 1945 Sex: FProcedure: XR ABDOMEN 1 VIEW (KUB)Order date: 04/20/2021 9:37 AMOrdering Provider: SAM ROMAN .Clinical Indication: Abdominal painComparison: NoneFindings:There is no small orlarge bowel distention. Concentrated stool seen throughoutthe colon.There is no pneumoperitoneum.There are no suspicious calcifications.There is no skeletal abnormality.Impression:1. Radiographic findings of constipation without obstruction.This final report was electronically signed by Dr Flo Harper MD 112:35 PMDictated By: FLO HARPERDate: 04/20/2021 12:35XR CHEST AP/PA 1 [id number] 12:31:44 [facility] ([facility])Name: ALEXSANDER CHOE : 1945 Sex: FProcedure: AP View ChestOrder date: 04/20/2021 9:37 AMOrdering Provider: SAM ROMAN .Clinical Indication: [id number]: Chest painComparison: NoneFindings:Cardiomegaly.The lungs are clear. No large pleural effusions or pneumothorax. Osseousstructures are nonacute.No evidence of active tuberculosis.Impression:Cardiomegaly. Otherwise, nonacute chest.This final report was electronically signed by Dr Flo Harper MD : PMDictated By: FLO HARPERDate: :URINALYSIS WITH [id number] 12:16:00 Test Item Value Reference Range Interpretation Comments Color (test code = Light-Yellow UCOLR) Clarity (test code = Clear UCLAR) Glucose (test code = NEGATIVE NEGATIVE N UGLUC) Bilirubin (test code NEGATIVE NEGATIVE N = UBILI) Ketones (test code = NEGATIVE NEGATIVE N UKET) Specific [place] 1.005 1.005-1.030 A (test code = USPGR) Blood (test code = NEGATIVE NEGATIVE N UBLD) PH (test code = UPH) 6.0 4.5-8.0 A Protein (test code = NEGATIVE NEGATIVE N UPROT) Urobilinogen (test 0.2 See_Comment N [Automat ed message] code = U UROB) The system [employer] generated this result transmit [place] reference range : 0.2. The refere nce range was not u sed to interpret th is result as normal/abnormal . Nitrite (test code = NEGATIVE NEGATIVE N UNITR) Leukocyte Esterase Large NEGATIVE A (test code = ULEUK) RBC (test code = 2-5 0-5 A RBCUR) WBC (test code = 11-20 0-5 A WBCUR) Bacteria (test code = TRACE None Seen,Trace A UBACT) Mucous (test code = TRACE None Seen A UMUC) Squamous Epithelial 11-20 0-10 A (test code = SQEP) PTH INTACT (IH)2021-04-20 12:11:00 Test Item Value Reference Range Interpretation Comments PTH, INTACT (test code = PTH) 25 18-88 GLYCOSALATED [id number] 11:40:00 Test Item Value Reference Range Interpretation Comments Hemoglobin A1C (test 6.3 % 4.2-6.3 A code = GLYCO) Mean Plasma Glucose 147 mg/dl 90-180 WHEN USMAN T RESULTS FOR (test code = MPG) A1C EXCEED 14.0, THE LINEAR LIMIT OF THE INSTRUMENT, THE CALCULATED RESU LT FOR THE MEAN GLUCOS E IS NOT RELIABLE. CORONARY [id number] 11:12:00 Test Item Value Reference Range Interpretation Comments Triglycerides (test 340 mg/dl 0-149 H Trig. In terpretation code = TRIG) Guide: Nor mal: < 150 mg/dl Borderline High : 150 - 199 mg/dl High: 200 - 499 mg/dl Very High: >= 5 00 mg/dl Cholesterol (test code 193 mg/dl 0-200 = CHOL) HDL (test code = HDL) 32 mg/dl 35-86 L dLDL (test code = 123 mg/dl 0-99 H Direct LDL DILDL) Intrepretations : Optimal: <100 mg/dl Suspect: 100 - 129 mg/dl Border line: 130 - 159 mg/dl High: 160 - 189 mg/dl Very High: >1 90 mg/dl Risk Factor (test code 6.0 0.0-4.4 H Risk Factor = RFACT) Men Women R isk Factor 3.4 3.3 1/ 2 Average 5.0 4.4 Average 9.6 7.1 2X Average 24.0 11.0 3X Average vLDL (test code = 68 mg/dl 20-50 H VLDL) [id number] 11:12:00 Test Item Value Reference Range Interpretation Comments Magnesium (test code = MG) 1.9 mg/dl 1.6-2.6 TSH (Ultra Sensitive)2021-04-20 11:12:00 Test Item Value Reference Range Interpretation Comments TSH (test code = TSH) 1.77 mIU/L 0.35-3.74 PRO-BNP(B-Type Natriuretic Peptide)2021-04-20 11:12:00 Test Item Value Reference Range Interpretation Comments Pro-BNP(B-Peptide 629 pg/ml 0-450 H THE METHOD OLOGY FOR ) (test code = DETECTION OF B-NATRIURETIC PROBNP) PEPTIDE HAS BEE N CHANGED TO "NT pro-BNP" . THE NORMAL RANGES HAVE ALEXSANDRA NGED. PLEASE NOTE POLO T RANGES ARE DEFINED BY THE AGE OF THE PATIENT. (<75 years old = 0-125 pg/ml 75years and older = 0-450pg /ml). VALUES ARE NOT INTERCHANGEABLE BETWEEN METHODS. 2006 [id number] 11:12:00 Test Item Value Reference Range Interpretation Comments Phosphorus (test code = PHOS) 3.8 mg/dl 2.5-4.9 URIC [id number] 11:12:00 Test Item Value Reference Range Interpretation Comments Uric Acid (test code = URICA) 5.3 mg/dl 2.6-6.0 [id number] 11:12:00 Test Item Value Reference Range Interpretation Comments Sodium (test code = 136 mmol/l 136-146 NA) Potassium (test 3.8 mmol/l 3.5-5.1 code = K) Chloride (test code 103 mmol/l 98-107 = CL) Calcium (test code 9.5 mg/dl 8.5-10.1 = CALC) CO2 (test code = 29 mmol/l 21-32 CO2) Glucose (test code 193 mg/dl 74-106 H = GLU) BUN (test code = 13.0 mg/dl 7.0-18.0 BUN) Creatinine (test 1.0 mg/dl 0.5-1.3 code = CREA) T Protein (test 6.8 gm/dl 6.4-8.2 code = TP) Albumin (test code 3.1 gm/dl 3.4-5.0 L = ALB) A/G Ratio (test 0.8 % 1.1-2.2 L code = AGRAT) AST (SGOT) (test 12 U/L 15-37 L code = AST) ALT (SGPT) (test 19 U/L 13-61 code = ALT) Alkaline Phos (test 51 U/L 45-117 code = ALKP) Total Bilirubin 0.4 mg/dl 0.2-1.0 (test code = TBIL) Globulin (test code 3.7 gm/dl 2.3-3.5 H = GLOBU) Calcium, Corrected 10.2 mg/dl 8.4-10.2 Various f ormulas exist (test code = for corrected s tariq CALCCORR) calcium results , each yielding differ ent values. This corrected resul t was based on the fo rmula: Corrected Calci um = SerumCalcium + [0.8 * ( 4 - SerumAlbu min)] EGFR if >60 Prydeinig (test code mL/min/1.73m\\ = EGFRAA) S\\2 EGFR if Non- 57 Estimate d Glomerular Prydeinig (test code mL/min/1.73m\\ Filtrat ion Rate (eGFR) = EGFRNA) S\\2 Reference Inter vals Decision Points for 18 years and older and average body ma ss: >= 60 Does not exc lude kidney disease. 30 - 59 Suggests modera te chronic kidney disease and indicat es the need for furthe r investigation including asses sment of proteinuria and cardiovascular factors. < 30 Usually in dicates a need for refe rral for assessment and management of c hronic kidney failure. C-REACTIVE [id number] 11:11:00 Test Item Value Reference Range Interpretation Comments C REACTIVE PROTEIN (test code = 1.6 ng/ml 0.0-0.3 H CRP) CBC WITH AUTO [id number] 10:29:00 Test Item Value Reference Range Interpretation Comments WBC (test code = 8.17 10\\S\\3/ul 4.80-10.80 WBC) RBC (test code = 4.22 10\\S\\6/ul 4.20-5.40 RBC) Hemoglobin (test 12.1 gm/dl 12.0-14.0 code = HGB) Hematocrit (test 37.8 % 37.0-47.0 code = HCT) MCV (test code = 89.6 fL 81.0-99.0 MCV) MCH (test code = 28.7 pg 27.0-31.0 MCH) MCHC (test code = 32.0 gm/dl 33.0-37.0 L MCHC) RDW (test code = 13.9 % 11.5-14.5 RDWVC) Platelet (test code 299 10\\S\\3/ul 130-400 = PLT) MPV (test code = 9.6 fL 7.4-10.4 A "NOT MEASUR ED" MPV) RESULTS ARE DIS PLAYED WHEN THE INSTRU MENT HAS A SUPPRESSE D OR UNREPORTABLE RE SULT. THIS WILL MOST OFTEN HAPPEN WITH THE MPV WHEN THERE IS A N ABNORMAL PLATEL ET DISTRIBUTION DU E TO A CRITICAL LOW VA LUE OR PLATELET CLUMPI NG. THE RDW MAY BE SUPPRESSED IF T HERE ARE MULTIPLE PE AKS PRESENT ON THE RBC HISTOGRAM. IN THIS CASE, A MANUAL REVIEW OF THE SLIDE WI LL BE PERFORMED, AND RBC MORPHOLOGY WILL BE NOTED ON THE RE PORT. NE% (test code = 75.8 % 42.0-75.0 H NE) LY% (test code = 13.3 % 13.0-42.0 LY) MO% (test code = 5.9 % 4.0-14.0 MO) EO% (test code = 2.7 % 1.0-5.0 EO) BA% (test code = 1.2 % 0.0-3.0 BA) IG% (test code = 1.1 % 0.0-0.4 H IG%) [id number] 08:36:14Large thyroid nodule on left [facility]ULIO [facility] ([facility]/[place])Name: ALEXSANDER CHOE : 1945 Sex: FProcedure: US THYROIDOrder Date: 04/20/2021 1:34 AMOrdering Provider: ELROY HARE .Clinical Indication: [id number]: Thyroid noduleComparison: NoneTechnique: Real-time ultrasonography was obtained of the thyroid gland andrepresentative images were recorded.Findings:The right lobe of the thyroid gland measures 4.4 x 1.7 x 2.0 cm in CC, AP, andtransverse dimensions.Complex 1.3 x 1.1 cmsuperior pole nodule. Complex solid 1.6 x 1.5 hyperechoicinferior pole nodule.The left lobe of the th yroid gland measures 5.7 x 4.2 x 2.6 cm in CC, AP, andtransverse dimensions.Complex solid and cystic4.5 x 3.5 x 3.4 cm inferior pole nodule. Solidhyperechoic 1.3 x 1.3 cm superior pole nodule.The thyroid isthmus is of normal thickness.There are no nodules in the thyroid isthmus.Impression:Multinodular thyroid goiter with dominant nodule within the lower pole of theleft thyroid lobe. 6-12 month follow-up is recommended.This final report was electronically signed by Dr Flo Harper MD :31 AMDictated By: FLO HARPERDate: 04/20/2021 08:31ED2 [id number] 13:11:00 Test Item Value Reference Range Interpretation Comments Sodium (test code = NA) 144 mmol/l 128-145 Potassium (test code = K) 4.0 mmol/l 3.6-5.1 CO2 (test code = CO2) 27 mmol/l 18-33 Chloride (test code = CL) 102 mmol/l 98-108 Glucose (test code = GLU) 104 mg/dl 73-118 Calcium (test code = CALC) 10.4 mg/dl 8.0-10.3 H BUN (test code = BUN) 17 mg/dl 7-22 Creatinine (test code = CREA) 1.3 mg/dl 0.6-1.2 H ED2 [id number] 13:10:00 Test Item Value Reference Range Interpretation Comments WBC (test code = WBC) 9.4 10\\S\\9/L 3.5-10.0 LY% (test code = LY) 21.4 % 15.0-50.0 MIDS% (test code = MIDS) 5.9 % 2.0-15.0 Granulocytes % (test code = 72.7 % 35.0-80.0 GRA%) Lymphocytes (test code = 2.0 10\\S\\9/L 0.5-5.0 LYMPH) MID (test code = MID) 0.6 10\\S\\9/L 0.1-1.5 Granulocytes (test code = 6.8 10\\S\\9/L 1.2-8.0 GRAN) RBC (test code = RBC) 4.49 10\\S\\12/L 3.50-5.50 Hemoglobin (test code = HGB) 12.9 gm/dl 11.5-16.5 Hematocrit (test code = HCT) 39.1 % 35.0-55.0 MCV (test code = MCV) 87.0 fL 75.0-100.0 MCH (test code = MCH) 28.7 pg 25.0-35.0 MCHC (test code = MCHC) 32.9 gm/dl 31.0-38.0 RDW % (test code = RDW%) 14.1 % 11.0-16.0 Platelet (test code = PLT) 305 10\\S\\9/L 100-400 MPV (test code = MPV) 8.7 fL 8.0-11.0 A ED2 HEPATIC FUNCTION PANEL (LIVER)2018-09-27 13:10:00 Test Item Value Reference Range Interpretation Comments Alkaline Phos (test code = ALKP) 44 U/L 42-141 ALT (SGPT) (test code = ALT) 21 U/L 10-47 AST (SGOT) (test code = AST) 27 U/L 11-38 Total Bilirubin (test code = TBIL) 0.5 mg/dl 0.2-1.6 Albumin (test code = ALB) 3.6 gm/dl 3.3-5.5 T Protein (test code = TP) 7.4 gm/dl 6.4-8.1 Amylase (test code = AMYL) 36 U/L 14-97 Gamma GT (test code = GGT) 12 U/L 5-65 ED2 URINE [id number] 13:09:00 Test Item Value Reference Range Interpretation Comments Color (test code = UCOLR) Yellow Lt. Yellow A Clarity (test code = UCLAR) Clear Glucose (test code = UGLUC) NEGATIVE NEGATIVE N Bilirubin (test code = UBILI) NEGATIVE NEGATIVE N Ketones (test code = UKET) TRACE NEGATIVE A Specific [place] (test code = USPGR) >=1.030 1.005-1.030 A Blood (test code = UBLD) NEGATIVE NEGATIVE N PH (test code = UPH) 5.5 4.5-8.0 A Protein (test code = UPROT) NEGATIVE NEGATIVE N Urobilinogen (test code = U UROB) 0.2 >0.2 N Nitrite (test code = UNITR) NEGATIVE NEGATIVE N Leukocyte Esterase (test code = Small NEGATIVE A ULEUK) ED2 CT ABDOMEN/PELVIS W/O [id number] 12:43:44NPO 4 hours. Do not withhold medsProcedure: ED2 CT ABDOMEN/PELVIS W/O CONTRASTOrder Date: 09/27/2018 12:05 PMOrdering Provider: ZHANNA Cotterinical Indication: abdominal painComparison: NoneTECHNIQUE:CT of the abdomen and pelvis WITHOUT intravenous contrast. The abdomen andpelvis were scanned utilizing a multidetector helical scanner from the diaphragmto the lesser trochanter. Coronal and sagittal reformations were obtained.This exam was performed according to the our departmental dose-optimizationprogram which includes automated exposure control, adjustment of the mA and/orkV according to patient size and/or use of iterative reconstruction techniques.DISCUSSION:ABSENCE OF INTRAVENOUS CONTRAST DECREASES SENSITIVITY FOR DETECTION OF FOCALLESIONS AND VASCULAR PATHOLOGY.LOWER THORAX: Normal.HEPATOBILIARY: No focal hepatic lesions. No biliary ductal dilatation.SPLEEN: No splenomegaly.PANCREAS: No focal masses or ductal dilatatio n.ADRENALS: 1.6 cm lipid rich right adrenal adenoma is present.KIDNEYS/URETERS: No hydronephrosis, stones, or solid mass lesions. 3 cm simplecyst is present arising from the lower pole of the left kidney.PELVIC ORGANS/BLADDER: Unremarkable.PERITONEUM / RETROPERITONEUM: No free air or fluid.LYMPH NODES: No lymphadenopathy.VESSELS: Vascular calcifications are seen in the abdominal aorta. No aneurysmaldilatation is present.GI TRACT: There is extensive descending and sigmoid colonic diverticulosis.Thereis pericolic inflammatory stranding about the proximal sigmoid colon.There is however no evidence ofbowel perforation or fluid collection.BONES AND SOFT TISSUES: Severe multilevel disc space narrowing, endplatespurring and vacuum disc phenomena is present. No acute fracture is present.There is a fat-containing umbilical hernia hernia neck measures 2.1 cm.IMPRESSION:Acute, uncomplicated sigmoid diverticulitis.Small fat-containing umbilical hernia.This final report was electronically signed by Dr Eliseo Oliva MD 09/27/201812:37 PMDictated By: Claudine OLIVA: 09/27/2018 12:37
[2021-05-07 13:12] LABS: Absolute Lymphocytes (CBC) 1.3 K/uL (0.7-4.9); Basophils % 1.3 % (0-1.3); Hematocrit 33.5 % (36.0-45.0); Lymphocytes % 10.1 % (15.3-44.8); MPV 8.3 fL (7.6-11.3); RBC Red Blood Cell Count 3.89 M/uL (3.86-4.86)
[2021-05-07 13:33] LABS: Potassium 4.2 mmol/L (3.5-5.1)
--- NOTE | 2021-05-07 13:48 | RAD REPORT ---
EXAM DESCRIPTION: CT - Chest For Pe Angio - 05/07/2021 1:20 pm CLINICAL HISTORY: dyspnea, recent surgery/mass removal right lung COMPARISON: No comparisons FINDINGS: Chest Wall: Markedly enlarged thyroid. No axillary lymphadenopathy. Lungs: Right hilar adenopathy. Limited by respiratory motion. There is consolidative and/or atelectat ic changes in the right upper lobe. Limited by respiratory motion. No definite pulmonary embolus iden tified. Pleura: Small right and trace left pleural effusion. Mediastinum/sharri: Pathologic mediastinal lymphadenopathy including a paratracheal lymph node measurin g 2.5 centimeters. Right hilar mass with atelectasis. Enlarged subcarinal lymph node. Heart: No significant pericardial effusion. Normal heart size. Coronary artery calcifications. Upper abdomen: No acute abnormality. Bones: No acute abnormality. Scattered degenerative changes are present in the spine. IMPRESSION: 1. Though limited due to motion, no definite pulmonary embolus identified. 2. Bilateral pleural effusions, right greater than left, with associated atelectasis. 3. Mediastinal and hilar adenopathy with right upper lobe consolidation suspicious for bronchogenic c arcinoma and mediastinal spread. No CTs are available for comparison, however.
--- NOTE | 2021-05-07 13:52 | RAD REPORT ---
EXAM DESCRIPTION: RAD - Chest Single View - 05/07/2021 1:11 pm CLINICAL HISTORY: COUGH COMPARISON: No comparisons FINDINGS: Diffuse prominence of the pulmonary interstitium. Cardiomegaly.No acute osseous abnormalit y. Small effusions better demonstrated on the subsequent chest CT. IMPRESSION: Mediastinal and hilar adenopathy as well as bilateral pleural effusions better demonstra [place] on the subsequent chest CT. No edema or consolidative airspace disease.
[2021-05-07] MEDS ORDERED: LEVALBUTEROL 1.25 MG/3 ML NEB ONE (14:14)
--- NOTE | 2021-05-07 16:03 | ER ---
Nurse's Notes [facility] Name: Naye Mclaughlin Age: 75 yrs Sex: Female : 1945 Arrival Date: 05/07/2021 Time: 11:39 Bed 26 Private MD: Diagnosis: Dyspnea, unspecified;Pleural effusion, not elsewhere classified;Cough Presentation: 05/07 11:43 Chief complaint: Had lung CA removed 04/25, c/o worsening cough and SOB over last week. hb Coronavirus screen: Client presents with at least one sign or symptom that may indicate coronavirus-19. Standard/surgical mask placed on the client. Provider contacted for isolation considerations. Ebola Screen: No symptoms or risks identified at this time. Initial Sepsis Screen: Does the patient meet any 2 criteria? RR > 20 per min. No. Patient's initial sepsis screen is negative. Does the patient have a suspected source of infection? No. Patient's initial sepsis screen is negative. Risk Assessment: Do you want to hurt yourself or someone else? Patient reports no desire to harm self or others. Onset of symptoms was May 07, 2021. 11:43 Method Of Arrival: Wheelchair hb 11:43 Acuity: JOSE LUIS 3 hb Historical: - Allergies: 11:46 tramadol; hb 11:46 Trimethoprim; hb 11:46 Prednisolone; hb 11:46 Sulfa (Sulfonamide Antibiotics); hb - Home Meds: 11:46 gabapentin 100 mg oral cap 1 cap 3 times per day [Active]; rosuvastatin 5 mg oral tab 1 hb tab once daily [Active]; diltiazem HCl 180 mg Oral CDER 1 cap once daily [Active]; fenofibrate 160 mg oral tab 1 tab once daily [Active]; fluticasone propionate 44 mcg/actuation inhalation HFAA 2 puffs 2 times per day [Active]; glipizide-metformin 2.5-500 mg oral tab 1 tab 2 times per day [Active]; melatonin 3 mg Oral tab [Active]; multivitamin with minerals oral cap [Active]; - PMHx: 11:46 Lung CA; hb - PSHx: 11:46 Lung - Right; hb - Immunization history:: Adult Immunizations up to date. - Social history:: Smoking status: Patient denies any tobacco usage or history of. - Family history:: not pertinent. - Hospitalizations: : Patient was recently seen at [facility]. Screenin:11 Abuse screen: Denies threats or abuse. Denies injuries from another. Nutritional ss screening: No deficits noted. Tuberculosis screening: Never had TB. 14:12 Fall Risk No fall in past 12 months (0 pts). Secondary diagnosis (15 points) impaired ap3 mobility, IV access (20 points). Ambulatory Aid- Crutches/Cane/Walker (15 pts). Gait- Weak (10 pts.). Mental Status- Oriented to own ability (0 pts). Total [place] Fall Scale indicates High Risk Score (45 or more points). Fall prevention measures have been instituted. Side Rails Up X 2 Placed Close to Nursing Station Frequent Obs/Assessments Occuring Family Present and informed to notify staff if the need to leave the bedside As available patient and family educated on Fall Prevention Program and Strategies. Assessment: 14:06 General: Appears comfortable, Behavior is calm, cooperative, appropriate for age. Pain: ap3 Denies pain. Neuro: Level of Consciousness is awake, alert, obeys commands, Oriented to person, place, time, situation, Appropriate for age Moves all extremities. Gait is unsteady, Speech is normal. Cardiovascular: Denies chest pain, Capillary refill < 3 seconds. Respiratory: Reports cough that is non-productive, since longer than one week. GI: No signs and/or symptoms were reported involving the gastrointestinal system. : No signs and/or symptoms were reported regarding the genitourinary system. EENT: No signs and/or symptoms were reported regarding the EENT system. 14:11 Respiratory: Breath sounds are clear bilaterally. ap3 15:58 Reassessment: Patient and/or family updated on plan of care and expected duration. Pain ap3 level reassessed. Patient is alert, oriented x 3, equal unlabored respirations, skin warm/dry/pink. family at the bedside. 17:29 Reassessment: Patient and/or family updated on plan of care and expected duration. Pain ap3 level reassessed. Patient is alert, oriented x 3, equal unlabored respirations, skin warm/dry/pink. family at the bedside with patient. 18:38 Reassessment: patient provided with a sand which, baked chips and water. ap3 19:08 Reassessment: Patient appears in no apparent distress at this time. No changes from vg1 previously documented assessment. Patient and/or family updated on plan of care and expected duration. Pain level reassessed. Patient is alert, oriented x 3, equal unlabored respirations, skin warm/dry/pink. Patient denies pain at this time. 20:31 Reassessment: pt sitting in chair at bedside, no distress noted, family at bedside bb awaiting transfer to facility with higher level of care. 21:43 Reassessment: EMS at bedside for transport of pt to facility for higher level of bb care. Pt is A\\T\\O x 4, resp unlabored, pt coughing, IVsite intact, family at bedside. Vital Signs: 11:43 BP 149 / 98; Pulse 84; Resp 24; Temp 97.8; Pulse Ox 97% on R/A; Weight 107.95 kg; hb Height 5 ft. 3 in. (160.02 cm); Pain 0/10; 12:11 BP 143 / 73; Pulse 77; Resp 20; Pulse Ox 96% on R/A; ss 13:00 BP 126 / 67; Pulse 79; Resp 19; Pulse Ox 96% on R/A; Pain 0/10; ap3 14:15 BP 138 / 56; Pulse 69; Resp 18; Pulse Ox 100% on R/A; ap3 15:17 BP 146 / 82; Pulse 77; Pulse Ox 97% on R/A; ap3 17:30 BP 141 / 69; Pulse 75; Resp 19; Pulse Ox 97% on R/A; ap3 18:38 BP 130 / 96; Pulse 79; Resp 19; Pulse Ox 94% on R/A; ap3 19:46 BP 141 / 46; Pulse 82; Resp 20 S; Pulse Ox 96% on R/A; oe 21:48 BP 140 / 93; Pulse 84; Resp 20 S; Pulse Ox 96% on R/A; bb 11:43 Body Mass Index 42.16 (107.95 kg, 160.02 cm) hb ED Course: 11:39 Patient arrived in ED. mr 11:45 Triage completed. hb 11:46 Arm band placed on. hb 11:59 Edgar Anne MD is Attending Physician. rn 12:11 Patient has correct armband on for positive identification. Bed in low position. Call ss light in reach. Side rails up X 1. 13:08 Inserted saline lock: 20 gauge in right antecubital area, using aseptic technique. dh4 Blood collected. 13:09 Eve Yu, RN is Primary Nurse. ap3 13:12 XRAY Chest (1 view) In Process Unspecified. EDMS 13:20 CT Chest For PE Angio In Process Unspecified. EDMS 14:29 ED physician to see patient. ap3 15:19 Initiated transfer to [facility]. ma 15:30 [facility] denied transfer due to being at full capacity, "can try to get a bed later ma today". 15:35 Jorge,foreign exchange student coordinator, spoke with Dr. Anne to notify him they can accept the ma patient later today, will call back for Dr bernardino Warren report. 15:[address] bernardino krishna with [facility] provider. ma 17:44 spoke with Jorge at [facility] to get update on transfer, still waiting on a bed mt to come available. 19:59 Primary Nurse role handed off by Eve Yu, RN mw2 20:07 administrative approval given by [employer]/ patient has been accepted to [facility]2 bed 1615/ Dr. Clark accepted the patient in transfer/ report to be called to [phone]. 20:32 No provider procedures requiring assistance completed. Patient transferred, IV remains bb in place. Administered Medications: 14:14 Drug: Xopenex (levalbuterol) 1.25 mg Route: Inhalation; ap3 17:29 Follow up: Response: No adverse reaction ap3 Outcome: 16:02 ER care complete, transfer ordered by . rn 20:32 Instructed on the need for transfer. bb 20:59 Transferred by ground EMS to [facility]. vg1 20:59 Condition: stable 21:49 Patient left the ED. bb Signatures: Dispatcher [employer] EDOK Giovanna Molina SarahBozena lemus, RN RN bb Edgar Anne MD MD rn Smirch, Shelby, RN RN ss Baxter, Heather, RN RN Shun Sutton Moriah ma Eve Yu, RN RN ap3 Juice Herrmann mw2 Josh Couch 4 Usha Hale, RN RN vg1 Corrections: (The following items were deleted from the chart) 11:50 11:46 Allergies: Ultram; hb hb 15:54 15:35 foreign exchange student coordinator spoke with Dr. Anne to notify him they can accept the mt patient later today, will call back for Dr bernardino Warren report mt
--- NOTE | 2021-05-07 16:03 | EDPHYS ---
Physician Documentation [facility] Name: Naye Mclaughlin Age: 75 yrs Sex: Female : 1945 Arrival Date: 05/07/2021 Time: 11:39 Bed 26 Private MD: ED Physician Edgar Anne HPI: 05/07 13:09 This 75 yrs old Female presents to ER via Wheelchair with complaints of Cough.rn 13:09 The patient or guardian reports cough, described as moderate, with no sputum, rn difficulty breathing. Onset: The symptoms/episode began/occurred 2 week(s) ago. Severity of symptoms: At their worst the symptoms were moderate, in the emergency department the symptoms have improved. Modifying factors: The symptoms are alleviated by nothing, the symptoms are aggravated by nothing. Associated signs and symptoms: Pertinent negatives: chest pain, fever. The patient has been recently seen by a physician:. Reports had right lung mass removed 2 weeks ago at [facility] in [place], since then has had non-productive cough, no fever, no chest pain, + mild sob during "coughing spells". No trauma. No hx of dvt/PE. No hemoptysis. . Historical: - Allergies: 11:46 tramadol; hb 11:46 Trimethoprim; hb 11:46 Prednisolone; hb 11:46 Sulfa (Sulfonamide Antibiotics); hb - Home Meds: 11:46 gabapentin 100 mg oral cap 1 cap 3 times per day [Active]; rosuvastatin 5 mg oral tab 1 hb tab once daily [Active]; diltiazem HCl 180 mg Oral CDER 1 cap once daily [Active]; fenofibrate 160 mg oral tab 1 tab once daily [Active]; fluticasone propionate 44 mcg/actuation inhalation HFAA 2 puffs 2 times per day [Active]; glipizide-metformin 2.5-500 mg oral tab 1 tab 2 times per day [Active]; melatonin 3 mg Oral tab [Active]; multivitamin with minerals oral cap [Active]; - PMHx: 11:46 Lung CA; hb - PSHx: 11:46 Lung - Right; hb - Immunization history:: Adult Immunizations up to date. - Social history:: Smoking status: Patient denies any tobacco usage or history of. - Family history:: not pertinent. - Hospitalizations: : Patient was recently seen at [facility]. ROS: 13:09 Constitutional: Negative for fever, chills, and weight loss, Eyes: Negative for injury, rn pain, redness, and discharge, Neck: Negative for injury, pain, and swelling, Cardiovascular: Negative for chest pain, palpitations, and edema, Respiratory: + cough and sob Abdomen/GI: Negative for abdominal pain, nausea, vomiting, diarrhea, and constipation, Back: Negative for injury and pain, MS/Extremity: Negative for injury and deformity, Skin: Negative for injury, rash, and discoloration, Neuro: Negative for headache, weakness, numbness, tingling, and seizure. 13:09 All other systems are negative. rn Exam: 13:09 Constitutional: This is a well developed, well nourished patient who is awake, alert, rn and in no acute distress. + intermittent cough. Head/Face: Normocephalic, atraumatic. Eyes: Periorbital areas with no swelling, redness, or edema. ENT: No stridor, MMM Cardiovascular: Regular rate and rhythm. No pulse deficits. Respiratory: + mild tachypnea, no retractions. Abdomen/GI: soft, non-tender Skin: Warm, dry MS/ Extremity: Pulses equal, no cyanosis. Neuro: Awake and alert, GCS 15 Vital Signs: 11:43 BP 149 / 98; Pulse 84; Resp 24; Temp 97.8; Pulse Ox 97% on R/A; Weight 107.95 kg; hb Height 5 ft. 3 in. (160.02 cm); Pain 0/10; 12:11 BP 143 / 73; Pulse 77; Resp 20; Pulse Ox 96% on R/A; ss 13:00 BP 126 / 67; Pulse 79; Resp 19; Pulse Ox 96% on R/A; Pain 0/10; ap3 14:15 BP 138 / 56; Pulse 69; Resp 18; Pulse Ox 100% on R/A; ap3 15:17 BP 146 / 82; Pulse 77; Pulse Ox 97% on R/A; ap3 17:30 BP 141 / 69; Pulse 75; Resp 19; Pulse Ox 97% on R/A; ap3 18:38 BP 130 / 96; Pulse 79; Resp 19; Pulse Ox 94% on R/A; ap3 19:46 BP 141 / 46; Pulse 82; Resp 20 S; Pulse Ox 96% on R/A; oe 21:48 BP 140 / 93; Pulse 84; Resp 20 S; Pulse Ox 96% on R/A; bb 11:43 Body Mass Index 42.16 (107.95 kg, 160.02 cm) hb MDM: 11:59 Patient medically screened. rn 15:20 ED course: Initiating transfer back to [facility] for bilateral moderate pleural rn effusions, and dyspnea, no pulmonology here, and had thoracic surgery 12 days ago there.. 16:00 Differential Diagnosis: Bronchitis Viral Syndrome Pneumonia Other pleural effusion, rn interstitial edema, pneumonia, PE. Data reviewed: vital signs, nurses notes, lab test result(s), EKG, radiologic studies, plain films, and as a result, I will admit patient. Counseling: I had a detailed discussion with the patient and/or guardian regarding: the historical points, exam findings, and any diagnostic results supporting the discharge/admit diagnosis, lab results, radiology results, the need for further work-up and treatment in the hospital, the need to transfer to another facility. Response to treatment: the patient's symptoms have mildly improved after treatment, and as a result, I will admit patient. ED course: Accepted for transfer back to [facility], they do not currently have a bed but are working on it. Pt stable to wait as is 12 days post-op. . 05/07 12:12 Order name: CBC with Diff; Complete Time: 13:14 rn 05/07 12:12 Order name: Basic Metabolic Panel; Complete Time: 13:53 rn 05/07 12:12 Order name: BNP; Complete Time: 13:53 rn 05/07 12:12 Order name: Procalcitonin; Complete Time: 15:19 rn 05/07 12:12 Order name: Lactate; Complete Time: 13:53 rn 05/07 16:52 Order name: COVID-19 : Document "Date of Symptom Onset" if Symptomatic. ap3 05/07 12:00 Order name: XRAY Chest (1 view); Complete Time: 13:53 rn 05/07 12:12 Order name: IV Start; Complete Time: 13:09 rn 05/07 12:12 Order name: EKG; Complete Time: 12:12 rn 05/07 12:12 Order name: CT Chest For PE Angio; Complete Time: 13:53 rn 05/07 17:46 Order name: CREATININE WHOLE BLOOD EDMA 05/07 20:30 Order name: SARS-COV-2 RT PCR EDMA 05/07 12:12 Order name: EKG - Nurse/Tech; Complete Time: 16:15 rn Administered Medications: 14:14 Drug: Xopenex (levalbuterol) 1.25 mg Route: Inhalation; ap3 17:29 Follow up: Response: No adverse reaction ap3 Disposition Summary: 05/07/21 16:02 Transfer Ordered Transfer Location: [facility] rn Reason: Higher level of care rn Condition: Stable rn Problem: new rn Symptoms: have improved rn Accepting Physician: (05/07/21 21:49) tj Diagnosis - Dyspnea, unspecified rn - Pleural effusion, not elsewhere classified rn - Cough rn Forms: - Medication Reconciliation Form rn - SBAR form rn Signatures: Dispatcher [employer] EDMA Bozena Sarah RN RN Edgar Perkins MD MD rn Baxter, Heather, RN RN hb Prokisch, Amanda, RN RN ap3 Corrections: (The following items were deleted from the chart) 11:50 11:46 Allergies: Ultram; hb hb 19:30 16:53 CORONAVIRUS ordered. [facility] EDMA 21:49 16:02 rn tj
[2021-05-07 21:56] VITALS: TEMP 97.8
[2021-05-07 22:23] VITALS: O2SAT 96
[2021-05-07 22:25] VITALS: BP 140/93
--- NOTE | 2021-05-08 12:41 | EKG ---
Test Date: 2021-05-07 Test Time: 16:09:40 [place]: LATOYA MEASUREMENT RESULTS: Intervals: Rate: 77 SC: 148 QRSD: 86 QT: 390 QTc: 441 [place]: P: 59 SC: 148 QRS: -6 T: 40 INTERPRETIVE STATEMENTS: Normal sinus rhythm Normal ECG No previous ECG available for comparison Electronically Signed On 05-08-21 12:37:41 CDT by Adonis Sarah
== END 2021-05-07 21:49 | disposition short-term general hospital (02) ==
LOC: ER 11:34
DX: R06.00 Dyspnea, unspecified (principal); J91.8 Pleural effusion in other conditions classified elsewhere; Z20.822 Contact with and (suspected) exposure to COVID-19; Z85.118 Personal history of other malignant neoplasm of bronchus and lung; Z88.2 Allergy status to sulfonamides; Z88.5 Allergy status to narcotic agent; Z88.8 Allergy status to other drugs, medicaments and biological substances
CPT/HCPCS: 93005; 85025; 80048; 36415; 82565; 83605; 84145; 83880; 71275; 71045; 99285; U0003; Q9967